=== PATIENT | male | born 1985 | race Caucasian/White ===

== ENCOUNTER → 2017-01-26 | Outpatient (CLI) | payer BC ==
[2017-01-28 08:37] LABS: FOLLICLE STIMULATING HORMONE 1.9 mIU/mL (1.5-12.4); LUTEINIZING HORMONE 4.8 mIU/mL (1.7-8.6)
[2017-01-28 13:59] LABS: PROLACTIN 6.6 ng/mL (4.0-15.2)
== END ==
LOC: OD 09:31
PROVIDERS: ATTEND Urology
DX: N45.1 Epididymitis (principal); N52.8 Other male erectile dysfunction; E29.1 Testicular hypofunction
CPT/HCPCS: 36415; 83001; 83002; 84146

== ENCOUNTER 2017-02-04 17:34 | Emergency (ER) | payer BC ==
[2017-02-04 17:44] VITALS: BP 100/69
--- NOTE | 2017-02-04 18:21 | ER Document Report ---
ED Dizziness/Weakness - General Chief Complaint: Passed Out Prior to Arrival Stated Complaint: PASSED OUT Time Seen by Provider: 02/04/17 18:17 Notes: Patient was watching his significant other have a procedure performed here in the emergency department. Suddenly he felt clammy sweaty and nauseated. He states he got up to walk to the bathroom to vomit and he passed out. Patient states he has done this before when watching his child be born. Patient states he feels back to normal now. He states prior to the episode of watching the medical procedure today he was feeling normally. Symptoms were moderate. They were intermittent. They are made worse by watching the medical procedure and better with rest. There is no known radiation of symptoms. TRAVEL OUTSIDE OF THE [place] IN LAST 30 DAYS: No - Related Data Allergies/Adverse Reactions: No Known Allergies Allergy (Verified 02/04/17 17:44) Past Medical History - General Information source: Patient - Social History Smoking Status: Unknown if Ever Smoked Frequency of alcohol use: Occasional Drug Abuse: None Family History: CAD, DM, Hypertension Renal/ Medical History: Denies: Hx Peritoneal Dialysis Past Surgical History: Reports: Hx Appendectomy - Immunizations Hx Diphtheria, Pertussis, Tetanus Vaccination: No Review of Systems - Review of Systems Constitutional: denies: Chills, Fever Cardiovascular: denies: Chest pain, Palpitations, Orthopnea Respiratory: denies: Cough, Short of breath Gastrointestinal: Nausea. denies: Diarrhea Physical Exam - Vital signs Vitals: Temp Pulse Resp BP Pulse Ox 98.3 F 84 16 100/69 100 02/04/17 17:40 02/04/17 17:40 02/04/17 17:40 02/04/17 17:40 02/04/17 17:40 Interpretation: Normal - General General appearance: Appears well, Alert In distress: None - HEENT Head: Normocephalic, Atraumatic Eyes: Normal Pupils: PERRL - Respiratory Respiratory status: No respiratory distress Chest status: Nontender Breath sounds: Normal Chest palpation: Normal - Cardiovascular Rhythm: Regular Heart sounds: Normal auscultation Murmur: No - Abdominal Inspection: Normal Distension: No distension Bowel sounds: Normal Tenderness: Nontender Organomegaly: No organomegaly - Back Back: Normal, Nontender - Extremities General upper extremity: Normal inspection, Nontender, Normal color, Normal ROM , Normal temperature General lower extremity: Normal inspection, Nontender, Normal color, Normal ROM , Normal temperature, Normal weight bearing. No: Byron's sign - Neurological Neuro grossly intact: Yes Cognition: Normal Orientation: AAOx4 Marcell Coma Scale Eye Opening: Spontaneous Campbell Coma Scale Verbal: Oriented Marcell Coma Scale Motor: Obeys Commands Campbell Coma Scale Total: 15 Speech: Normal Motor strength normal: LUE, RUE, LLE, RLE Sensory: Normal - Psychological Associated symptoms: Normal affect, Normal mood - Skin Skin Temperature: Warm Skin Moisture: Dry Skin Color: Normal Course - Vital Signs Vital signs: Temp Pulse Resp BP Pulse Ox 98.3 F 84 16 100/69 100 02/04/17 17:40 02/04/17 17:40 02/04/17 17:40 02/04/17 17:40 02/04/17 17:40 - EKG Interpretation by Ms EKG shows normal: Sinus rhythm Rate: Normal Rhythm: NSR [place]/QRS: No: Right axis deviation, Left axis deviation Discharge - Discharge Clinical Impression: Syncope, vasovagal Condition: Stable Disposition: HOME, SELF-CARE Instructions: Vasovagal Symptoms ([facility]) Additional Instructions: Please call your primary care provider as soon as possible to arrange follow-up Forms: Return to Work Referrals: CECILIA BALLESTEROS MD [COMMUNITY BASED STAFF] - Follow up as needed
--- NOTE | 2017-02-05 08:00 | EKG REPORT ---
SEVERITY:- NORMAL ECG - SINUS RHYTHM : Confirmed by: Pepito Bellamy MD 05-Feb-2017 08:00:11
== END 2017-02-04 18:39 | disposition home or self-care (01) ==
LOC: ER 17:34
DX: R55 Syncope and collapse (principal); R11.0 Nausea
CPT/HCPCS: 93005; 93010; 99284

== ENCOUNTER → 2017-02-05 | Outpatient (CLI) | payer BC | LOC: OD 07:58 | PROVIDERS: ATTEND Urology | DX: N45.1 Epididymitis (principal); N52.8 Other male erectile dysfunction; E29.1 Testicular hypofunction | CPT/HCPCS: 36415; 84403 ==

== ENCOUNTER 2017-02-07 20:17 | Emergency (ER) | payer BC ==
--- NOTE | 2017-02-07 21:04 | ER Document Report ---
ED Medical Screen (RME) - General Chief Complaint: Penile Problem Stated Complaint: GENERAL PAIN Time Seen by Provider: 02/07/17 21:01 TRAVEL OUTSIDE OF THE [place] IN LAST 30 DAYS: No - HPI Notes: 02/07/17 21:01 Patient is a 31-year-old male with a history of erectile dysfunction who presents the ED complaining of an erection lasting for 5 hours status post injection of prostaglandin E1/Phentolamine/Papverine by his Urologist this afternoon. Pt states that he started his erection at 1600. Pt states that he is starting to have discomfort and tried cold showers with no relief. He was instructed to take pseudoephedrine 30mg PO, but could not find any at the store. No other concerns or complaints. His Urologist is Dr. Camargo. I have treated and performed a rapid initial assessment of this patient. A comprehensive ED assessment and evaluation of the patient, analysis of test results and completion of medical decision making process will be conducted by additional ED providers. - Related Data Allergies/Adverse Reactions: No Known Allergies Allergy (Verified 02/07/17 20:18) Past Medical History Renal/ Medical History: Denies: Hx Peritoneal Dialysis Past Surgical History: Reports: Hx Appendectomy - Immunizations Hx Diphtheria, Pertussis, Tetanus Vaccination: No Physical Exam - Vital signs Vitals: Temp Pulse Resp BP Pulse Ox 99.0 F 86 20 130/88 H 99 02/07/17 20:25 02/07/17 20:25 02/07/17 20:25 02/07/17 20:25 02/07/17 20:25 - Respiratory Respiratory status: No respiratory distress Breath sounds: Normal - Cardiovascular Rhythm: Regular Heart sounds: Normal auscultation - Genitourinary Notes: + erection Course - Vital Signs Vital signs: Temp Pulse Resp BP Pulse Ox 99.0 F 86 20 130/88 H 99 02/07/17 20:25 02/07/17 20:25 02/07/17 20:25 02/07/17 20:25 02/07/17 20:25
[2017-02-07] MEDS ORDERED: PHENYLEPHRINE HCL INJ/PF 10 MG/1 ML SDV ONE (21:44)
[2017-02-07] MEDS ORDERED: LIDOCAINE 1% INJ-PF (10 MG/ML) 30 ML SDV ONE (21:45)
--- NOTE | 2017-02-07 21:59 | ER Document Report ---
ED General - General Chief Complaint: Penile Problem Stated Complaint: GENERAL PAIN Time Seen by Provider: 02/07/17 21:01 Notes: 31-year-old with history of erectile dysfunction who received a prostaglandin injection into his penis today and a urologist office. He states that since that time he has had an unpleasant erection but that has not gone away. It has been present now for 6 hours. He describes a constant, dull, throbbing pain to his penis. He has not been able to try anything to improve the symptoms. Nothing worsens the symptoms. Today was the first time he had ever received this medication. He denies any additional symptoms or concerns. TRAVEL OUTSIDE OF THE [place] IN LAST 30 DAYS: No - Related Data Allergies/Adverse Reactions: No Known Allergies Allergy (Verified 02/07/17 20:18) Past Medical History - General Information source: Patient - Social History Smoking Status: Never Smoker Chew tobacco use (# tins/day): No Frequency of alcohol use: None Drug Abuse: None Lives with: Spouse/Significant other Family History: CAD, DM, Hypertension Patient has suicidal ideation: No Patient has homicidal ideation: No Renal/ Medical History: Denies: Hx Peritoneal Dialysis Past Surgical History: Reports: Hx Appendectomy - Immunizations Hx Diphtheria, Pertussis, Tetanus Vaccination: No Review of Systems - Review of Systems Notes: Constitutional: Negative for fever. HENT: Negative for sore throat. Eyes: Negative for visual changes. Cardiovascular: Negative for chest pain. Respiratory: Negative for shortness of breath. Gastrointestinal: Negative for abdominal pain, vomiting or diarrhea. Genitourinary: Positive for priapism Musculoskeletal: Negative for back pain. Skin: Negative for rash. Neurological: Negative for headaches, weakness or numbness. 10 point ROS negative except as marked above and in HPI. Physical Exam - Vital signs Vitals: Temp Pulse Resp BP Pulse Ox 99.0 F 86 20 130/88 H 99 02/07/17 20:25 02/07/17 20:25 02/07/17 20:25 02/07/17 20:25 02/07/17 20:25 Interpretation: Normal Notes: PHYSICAL EXAMINATION: GENERAL: Appears mildly uncomfortable but no acute distress HEAD: Atraumatic, normocephalic. EYES: Pupils equal round and reactive to light, extraocular movements intact, sclera anicteric, conjunctiva are normal. ENT: nares patent, oropharynx clear without exudates. Moist mucous membranes. NECK: Normal range of motion, supple without lymphadenopathy LUNGS: Breath sounds clear to auscultation bilaterally and equal. No wheezes rales or rhonchi. HEART: Regular rate and rhythm without murmurs ABDOMEN: Soft, nontender, normoactive bowel sounds. No guarding, no rebound. No masses appreciated. : Priapism. Testicles without any focal tenderness. Positive cremasteric reflex bilaterally. There is a small area of bruising to the left 3 o'clock position on the penis from the prior injection EXTREMITIES: Normal range of motion, no pitting or edema. No cyanosis. NEUROLOGICAL: No focal neurological deficits. Moves all extremities spontaneously and on command. PSYCH: Anxious SKIN: Warm, Dry, normal turgor, no rashes or lesions noted. Course - Re-evaluation Re-evalutation: 02/07/17 21:57 Patient presents with priapism after receiving a prostaglandin injection and his urologist office today. On examination patient does have a very firm, uncomfortable direction. I injected 0.5 cc of local lidocaine to the lateral position of the penis at approximately the 3 o'clock position. After numbing, 5 cc of blood was able to be pulled. 1 mg of phenylephrine was instilled and I will recheck the patient in 5 minutes. [id number]-patient has had complete resolution of his priapism. No longer in pain. At this time will discharge with return precautions and follow-up recommendations. Verbal discharge instructions given a the bedside and opportunity for questions given. Medication warnings reviewed. Patient is in agreement with this plan and has verbalized understanding of return precautions and the need for urology primary care follow-up in the next 24-72 hours. - Vital Signs Vital signs: Temp Pulse Resp BP Pulse Ox 97.9 F 88 14 114/68 99 02/07/17 22:52 02/07/17 22:52 02/07/17 22:52 02/07/17 22:52 02/07/17 22:52 Procedures - Additional Procedures Priapism reduction: Notes: 02/08/17 03:43 The entirety of the base of the penis was prepped with chlorhexidine. Sterile gloves were applied. 1 cc of 1% lidocaine without epinephrine was instilled in the 3 o'clock position at the base of the penis. An 18-gauge needle was then inserted and blood was withdrawn until no further blood could be returned. A total of 7 cc of blood was removed. 1 cc of phenylephrine containing a total of 1 mg of phenylephrine was injected at the same site. Discharge - Discharge Clinical Impression: Priapism, drug-induced Condition: Good Disposition: HOME, SELF-CARE Additional Instructions: You may have some mild bruising and swelling over the site that we have injected the medications into. Please avoid manipulation of your penis by either sexual intercourse or masturbation for the next several days until he no longer have any discomfort to the area. The mild numbing doing that you have at this time from the lidocaine injection should resolve within the next several hours. Return if you have recurrence of an erection that will not go away, increasing pain, or any other symptoms that are worrisome to you.
[2017-02-07 22:54] VITALS: BP 114/68
== END 2017-02-07 22:55 | disposition home or self-care (01) ==
LOC: ER 20:17
PROC: 0V9 Male Reproductive System, Drainage (ICD-10-PCS; principal; 2017-02-07)
DX: N48.89 Other specified disorders of penis (principal); N48.30 Priapism, unspecified
CPT/HCPCS: 99283; 54220; J3490; J2370

== ENCOUNTER 2017-03-04 16:36 | Emergency (ER) | payer BC ==
[2017-03-04 16:47] VITALS: BP 128/78
[2017-03-04] MEDS ORDERED: NORMAL SALINE 1000 ML 1,000 ML IV ONE (17:05)
[2017-03-04] MEDS ORDERED: ONDANSETRON HCL INJ/PF 4 MG/2 ML SDV IV ONE (17:05)
--- NOTE | 2017-03-04 17:07 | ER Document Report ---
ED General - General Chief Complaint: Nausea/Vomiting/Diarrhea Stated Complaint: ABDOMINAL PAIN,DIARRHEA,VOMITING Time Seen by Provider: 03/04/17 16:55 Mode of Arrival: Ambulatory Information source: Patient Notes: 31-year-old male presents with complaints of nausea vomiting diarrhea 3 day duration. Patient notes 120 episodes of vomiting more than 10 episodes of diarrhea. Denies any blood in either. Family member had similar episodes prior to him getting sick. Patient denies any significant abdominal pain TRAVEL OUTSIDE OF THE [place] IN LAST 30 DAYS: No - HPI Onset: Other - 3 day duration Onset/Duration: Persistent Quality of pain: Cramping Severity: Mild Pain Level: 1 Associated symptoms: Diarrhea, Nausea, Vomiting Exacerbated by: Denies Relieved by: Denies Similar symptoms previously: No Recently seen / treated by doctor: No - Related Data Allergies/Adverse Reactions: No Known Allergies Allergy (Verified 03/04/17 16:38) Past Medical History - Social History Smoking Status: Never Smoker Cigarette use (# per day): No Chew tobacco use (# tins/day): No Smoking Education Provided: No Frequency of alcohol use: None Drug Abuse: None Family History: CAD, DM, Hypertension Patient has suicidal ideation: No Patient has homicidal ideation: No Renal/ Medical History: Denies: Hx Peritoneal Dialysis Past Surgical History: Reports: Hx Appendectomy - Immunizations Hx Diphtheria, Pertussis, Tetanus Vaccination: No Review of Systems - Review of Systems Notes: REVIEW OF SYSTEMS: CONSTITUTIONAL : Denies fever, chills, or sweats. Denies recent illness. EENT: Denies eye, ear, throat, or mouth pain or symptoms. Denies nasal or sinus congestion or discharge. Denies throat, tongue, or mouth swelling or difficulty swallowing. CARDIOVASCULAR: Denies chest pain. Denies palpitations or racing or irregular heart beat. Denies ankle edema. RESPIRATORY: Denies cough, cold, or chest congestion. Denies shortness of breath, difficulty breathing, or wheezing. GASTROINTESTINAL: Admits to nausea vomiting diarrhea GENITOURINARY: Denies difficulty urinating, painful urination, burning, frequency, blood in urine, or discharge. MUSCULOSKELETAL: Denies back or neck pain or stiffness. Denies joint pain or swelling. SKIN: Denies rash, lesions or sores. HEMATOLOGIC : Denies easy bruising or bleeding. LYMPHATIC: Denies swollen, enlarged glands. NEUROLOGICAL: Denies confusion or altered mental status. Denies passing out or loss of consciousness. Denies dizziness or lightheadedness. Denies headache. Denies weakness or paralysis or loss of use of either side. Denies problems with gait or speech. Denies sensory loss, numbness, or tingling. Denies seizures. PSYCHIATRIC: Denies anxiety or stress. Denies depression, suicidal ideation, or homicidal ideation. ALL OTHER SYSTEMS REVIEWED AND NEGATIVE. Dictation was performed using [employer] voice recognition software PHYSICAL EXAMINATION: GENERAL: Well-appearing, well-nourished and in no acute distress. HEAD: Atraumatic, normocephalic. EYES: Pupils equal round and reactive to light, extraocular movements intact, sclera anicteric, conjunctiva are normal. ENT: Nares patent, oropharynx clear without exudates. Moist mucous membranes. NECK: Normal range of motion, supple without lymphadenopathy LUNGS: Breath sounds clear to auscultation bilaterally and equal. No wheezes rales or rhonchi. HEART: Regular rate and rhythm without murmurs ABDOMEN: Soft, nontender, nondistended abdomen. No guarding, no rebound. No masses appreciated. Musculoskeletal: Normal range of motion, no pitting or edema. No cyanosis. NEUROLOGICAL: Cranial nerves grossly intact. Normal speech, normal gait. Normal sensory, motor exams PSYCH: Normal mood, normal affect. SKIN: Warm, Dry, normal turgor, no rashes or lesions noted. Physical Exam - Vital signs Vitals: Temp Pulse Resp BP Pulse Ox 98.0 F 89 18 128/78 H 98 03/04/17 16:47 03/04/17 16:47 03/04/17 16:47 03/04/17 16:47 03/04/17 16:47 Course - Re-evaluation Re-evalutation: 03/04/17 17:06 Overall patient looks well, expect some mild dehydration, IV fluids nausea control will be provided 03/04/17 18:02 Patient notes significant improvement, he is eating at this time. I will discharge home with close follow-up After performing a Medical Screening Examination, I estimate there is LOW risk for ACUTE APPENDICITIS, BOWEL OBSTRUCTION, ACUTE CHOLECYSTITIS, PERFORATED DIVERTICULITIS, INCARCERATED HERNIA, PANCREATITIS, TESTICULAR TORSION or PERFORATED ULCER, thus I consider the discharge disposition reasonable. Also, there is no evidence or peritonitis, sepsis, or toxicity. I have reevaluated this patient multiple times and no significant life threatening changes are noted. The patient and I have discussed the diagnosis and risks, and we agree with discharging home with close follow-up with the understanding that symptoms and presentations can change. We also discussed returning to the Emergency Department immediately if new or worsening symptoms occur. We have discussed the symptoms which are most concerning (e.g., bloody stool, fever, changing or worsening pain, intractable vomiting - standard verbal up date) that necessitate immediate return. - Vital Signs Vital signs: Temp Pulse Resp BP Pulse Ox 98.0 F 89 18 128/78 H 98 03/04/17 16:47 03/04/17 16:47 03/04/17 16:47 03/04/17 16:47 03/04/17 16:47 - Laboratory Result Diagrams: 03/04/17 17:18 03/04/17 17:18 Laboratory results interpreted by me: 03/04/17 03/04/17 17:18 17:18 MCH 33.8 H Plt Count 134 L BUN 24 H Discharge - Discharge Clinical Impression: Nausea vomiting and diarrhea Condition: Stable Disposition: HOME, SELF-CARE Instructions: Antinausea Medication ([facility]), Vomiting ([facility]) Additional Instructions: Follow up with your physician tomorrow for further care or return to the ED IMMEDIATELY if symptoms worsen or new concerns occur. If you cannot afford to follow up with your primary care physician a list of low cost clinics have been provided at the end of your discharge papers as well.
[2017-03-04 17:40] LABS: ABSOLUTE EOSINOPHILS # (AUTO) 0.2 10^3/uL (0.0-0.6); ABSOLUTE LYMPHOCYTES (AUTO) 1.7 10^3/uL (0.5-4.7); ABSOLUTE NEUT (AUTO) 5.5 10^3/uL (1.7-8.2); BASOPHILS % (AUTO) 0.2 % (0-2); EOSINOPHILS % (AUTO) 2.2 % (0-6); HEMATOCRIT 45.9 % (37.9-51.0); HEMOGLOBIN 16.2 g/dL (13.5-17.0); HGB HCT DIFFERENCE 2.7; LYMPHOCYTES % (AUTO) 20.5 % (13-45); MEAN CORPUSCULAR HEMOGLOBIN 33.8 pg (27.0-33.4); MEAN CORPUSCULAR HGB CONC 35.3 g/dL (32.0-36.0); MEAN CORPUSCULAR VOLUME 96 fl (80-97); MONOCYTES % (AUTO) 12.3 % (3-13); RED CELL DISTRIBUTION WIDTH 13.1 % (11.5-14.0); SEGMENTED NEUTROPHILS % (AUTO) 64.8 % (42-78); WHITE BLOOD COUNT 8.5 10^3/uL (4.0-10.5)
[2017-03-04 17:44] LABS: ALANINE AMINOTRANSFERASE 31 U/L (21-72); ALBUMIN 4.4 g/dL (3.5-5.0); ALKALINE PHOSPHATASE 84 U/L (38-126); ANION GAP 13 (5-19); ASPARTATE AMINO TRANSFERASE 23 U/L (17-59); BILIRUBIN,DIRECT 0.2 mg/dL (0.0-0.4); BILIRUBIN,TOTAL 0.8 mg/dL (0.2-1.3); BLOOD UREA NITROGEN 24 mg/dL (7-20); CALCIUM 9.8 mg/dL (8.4-10.2); CARBON DIOXIDE 27 mmol/L (22-30); CHLORIDE 104 mmol/L (98-107); CREATININE RESULT 1.01 mg/dL (0.52-1.25); GLUCOSE 92 mg/dL (75-110); LIPASE 138.4 U/L (23-300); POTASSIUM 4.1 mmol/L (3.6-5.0)
[2017-03-04] MEDS ORDERED: ONDANSETRON ODT 4 MG TAB (6 TAB/DSPK) PO SCH (18:15)
== END 2017-03-04 18:21 | disposition home or self-care (01) ==
LOC: ER 16:36
DX: R11.2 Nausea with vomiting, unspecified (principal); R19.7 Diarrhea, unspecified; R10.9 Unspecified abdominal pain
CPT/HCPCS: 99283; 96361; 96374; 36415; 83690; 85025; 80053; J2405; J7030

== ENCOUNTER 2017-06-04 08:10 | Emergency (ER) | payer SELFPAY ==
--- NOTE | 2017-06-04 09:50 | RADIOLOGY REPORT (SQ) ---
EXAM DESCRIPTION: HAND RIGHT 3 VIEWS COMPLETED DATE/TIME: 06/04/2017 9:26 am REASON FOR STUDY: pain in thumb COMPARISON: None. EXAM PARAMETERS: NUMBER OF VIEWS: Three views. TECHNIQUE: AP, lateral and oblique radiographic images acquired of the right hand. LIMITATIONS: None. FINDINGS: MINERALIZATION: Normal. BONES: No acute fracture or dislocation. No worrisome bone lesions. JOINTS: No effusions. SOFT TISSUES: No soft tissue swelling. No foreign body. OTHER: No other significant finding. IMPRESSION: NEGATIVE STUDY OF THE RIGHT HAND. NO RADIOGRAPHIC EVIDENCE OF ACUTE INJURY. TECHNICAL DOCUMENTATION: JOB ID: [id number] [employer]- All Rights Reserved Reading location - IP/workstation name: [email or web address]
--- NOTE | 2017-06-04 10:05 | ER Document Report ---
ED Hand/Wrist Injury - General Chief Complaint: Thumb Injury Stated Complaint: THUMB PAIN Time Seen by Provider: 06/04/17 09:18 Mode of Arrival: Ambulatory Information source: Patient TRAVEL OUTSIDE OF THE [place] IN LAST 30 DAYS: No - HPI Patient complains to provider of: thumb injury Injury to: Thumb Where: Home Notes: Patient is here with complaints of right thumb pain. He states he was standing on a step stool putting a shower head on when the stool slipped and he fell trying to catch himself jamming his right thumb into the wall. 7 5 days ago. States that the pain seems to be getting worse and he has slightly decreased range of motion of the thumb. He denies hitting his head. He denies numbness, tingling, weakness. He denies chest pain or shortness of breath. He denies nausea, vomiting, diarrhea. Pain is worse with movement better with rest. Been taking ibuprofen for pain. States the ibuprofen does not seem to be working anymore. He denies any fevers. No redness. No rash. He denies any other complaints at this time. No other injuries. - Related Data Allergies/Adverse Reactions: No Known Allergies Allergy (Verified 06/04/17 08:14) Past Medical History - Social History Smoking Status: Unknown if Ever Smoked Chew tobacco use (# tins/day): No Frequency of alcohol use: None Drug Abuse: None Family History: CAD, DM, Hypertension Patient has suicidal ideation: No Patient has homicidal ideation: No Renal/ Medical History: Denies: Hx Peritoneal Dialysis Past Surgical History: Reports: Hx Appendectomy - Immunizations Hx Diphtheria, Pertussis, Tetanus Vaccination: No Review of Systems - Review of Systems -: Yes All other systems reviewed and negative Physical Exam - Vital signs Vitals: Temp Pulse Resp BP Pulse Ox 98.0 F 81 16 120/82 99 06/04/17 08:14 06/04/17 08:14 06/04/17 08:14 06/04/17 08:14 06/04/17 08:14 - Notes Notes: GENERAL: alert, cooperative, nontoxic, no distress. HEAD: normocephalic, atraumatic EYES: conjunctiva pink without discharge, no external redness or swelling. EARS: no external swelling, no external redness NOSE: atraumatic, no external swelling MOUTH/THROAT: mucous membranes moist and pink NECK: soft, supple, full range of motion, no meningismus. CHEST: no distress, lungs clear and equal throughout. No wheezing, rales, rhonchi. CARDIAC: regular rate and rhythm, no murmur, normal capillary refill, normal pulses. BACK: full range of motion, no CVA tenderness. EXTREMITIES: full range of motion of all extremities. No redness, no swelling. Tenderness to palpation of the proximal phalanx of the right thumb. No obvious swelling. No deformity. Full range of motion noted. He can touch all fingers and perform the okay sign without difficulty. There is no redness. 5 out of 5 strength with flexion and extension of the thumb. Wrist exam is normal. Normal cap refill and sensation distally. NEURO: alert and oriented 3, no focal deficits, full range of motion of all extremities. PYSCH: appropriate mood, affect. Patient is cooperative. SKIN: pink, warm, dry, no rash. Course - Re-evaluation Re-evalutation: 06/04/17 10:08 Patient is nontoxic appearing with stable vitals. He was here for right thumb pain after slipping and jamming his thumb into a wall. He denies any other injuries. On exam he has full range of motion with normal cap refill and sensation. No deformity. There is no redness or signs of infection. X-ray shows no acute fracture. Patient likely sprained his thumb. He was placed in an Ken wrap. Follow-up if not better in 1 week, sooner for worsening pain, fever, redness, numbness, tingling, weakness, any further concerns. The patient is noted to have elevated blood pressure during today's emergency department visit. The patient was informed of this finding. The patient was instructed that this may be related to pre-hypertension and requires further evaluation with a primary care provider. The patient has no hypertensive symptoms at this time. The patient's emergency department workup and current diagnosis were explained to the patient and or family. Follow-up instructions were provided. Medications if prescribed were discussed. Instructions for when to return to the emergency department including specific worrisome symptoms were discussed with the patient and/or family. - Vital Signs Vital signs: Temp Pulse Resp BP Pulse Ox 98.0 F 81 16 120/82 99 06/04/17 08:14 06/04/17 08:14 06/04/17 08:14 06/04/17 08:14 06/04/17 08:14 - Diagnostic Test Radiology reviewed: Image reviewed, Reports reviewed - X-ray right hand normal Procedures - Immobilization Right hand Pre-Proc Neuro Vasc Exam: Normal Immobilizer type: Ken wrap Performed by: PCT Post-Proc Neuro Vasc Exam: Normal Alignment checked and good: Yes Discharge - Discharge Clinical Impression: Sprain of right thumb Qualifiers: Encounter type: initial encounter Sprain of finger site: metacarpophalangeal joint Qualified Code(s): S63.641A - Sprain of metacarpophalangeal joint of right thumb, initial encounter Condition: Stable Disposition: HOME, SELF-CARE Instructions: Sprained Thumb ([facility]) Additional Instructions: Take medications as prescribed. You may also take Tylenol as needed for pain. Wear Ken wrap as needed for comfort. Rest, ice, elevate your injury. Follow- up if not better in 1 week, sooner for worsening pain, fever, redness, numbness , tingling, weakness, any further concerns. Your blood pressure was elevated during today's visit. Have this rechecked with your doctor. Prescriptions: Diclofenac Sodium [Voltaren 50 Mg Tablet.Dr] 50 mg PO BID #20 tablet.dr Forms: Elevated Blood Pressure, Smoking Cessation Education, Return to Work Referrals: [facility] [Provider Group] - Follow up as needed PATRICIA VÁZQUEZ MD [ACTIVE STAFF] - Follow up as needed
[2017-06-04 10:19] VITALS: BP 117/75
== END 2017-06-04 10:19 | disposition home or self-care (01) ==
LOC: ER 08:10
DX: S63.641A Sprain of metacarpophalangeal joint of right thumb, initial encounter (principal); M79.644 Pain in right finger(s); W17.89XA Other fall from one level to another, initial encounter; Y93.89 Activity, other specified; R03.0 Elevated blood-pressure reading, without diagnosis of hypertension
CPT/HCPCS: 99283

== ENCOUNTER 2017-07-14 16:15 | Emergency (ER) | payer SELFPAY ==
--- NOTE | 2017-07-14 16:46 | ER Document Report ---
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 IN LAST 30 DAYS: No - HEENT HEENT: Normocephalic - NECK Neck: Supple - MUSCULOSKELETAL/EXTREMETIES Musculoskeletal/Extremeties: MAEW, Tender - dorsal right thumb, pt limits flexion due to pain, color normal, no swelling, sensation intact - NEURO Level of Consciousness: Awake, Alert Motor/Sensory: No Motor Deficit, No Sensory Deficit - DERM Integumentary: No Rash Course - Re-evaluation Re-evalutation: 07/14/17 17:54 still has not gotten the xray, in radiology department. 07/14/17 xray neg per rad - Vital Signs Vital signs: Temp Pulse Resp BP Pulse Ox 98.4 F 84 16 132/80 H 98 07/14/17 16:23 07/14/17 16:23 07/14/17 16:23 07/14/17 16:23 07/14/17 16:23 Discharge - Discharge Clinical Impression: Tendonitis Thumb injury Qualifiers: Encounter type: initial encounter Laterality: right Qualified Code(s): S69.91XA - Unspecified injury of right wrist, hand and finger(s), initial encounter Condition: Good Disposition: HOME, SELF-CARE Instructions: Acetaminophen, Ibuprofen (General) ([facility]), Tendonitis ([facility]) Additional Instructions: the the hand surgeon dr nielson for follow up motrin for inflammation range of motion of the thumb to er any concerns Prescriptions: Ibuprofen [Motrin 600 mg Tablet] 600 mg PO Q8HP PRN #30 tablet PRN Reason: Forms: Return to Work Referrals: ADINA NIELSON, [ACTIVE STAFF] - Follow up as needed
--- NOTE | 2017-07-14 18:21 | RADIOLOGY REPORT (SQ) ---
EXAM DESCRIPTION: FINGER RIGHT COMPLETED DATE/TIME: 07/14/2017 6:02 pm REASON FOR STUDY: right thumb pain COMPARISON: None. NUMBER OF VIEWS: Three views right hand and thumb. LIMITATIONS: None. FINDINGS: No fracture, subluxation or dislocation. Soft tissues intact. OTHER: No other significant finding. IMPRESSION: Radiographically normal appearance of the right hand and thumb. TECHNICAL DOCUMENTATION: JOB ID: [id number] Reading location - IP/workstation name: [email or web address]
[2017-07-14 18:34] VITALS: BP 131/81
== END 2017-07-14 18:35 | disposition home or self-care (01) ==
LOC: ER 16:15
DX: S69.91XA Unspecified injury of right wrist, hand and finger(s), initial encounter (principal); M77.9 Enthesopathy, unspecified; W01.0XXA Fall on same level from slipping, tripping and stumbling without subsequent striking against object, initial encounter
CPT/HCPCS: 99283

== ENCOUNTER 2018-03-23 16:00 | Emergency (ER) | payer BC, OTHER ==
--- NOTE | 2018-03-23 16:20 | ER Document Report ---
ED Medical Screen (RME) - General Chief Complaint: Thumb Injury Stated Complaint: THUMB PAIN Time Seen by Provider: 03/23/18 16:19 Mode of Arrival: Ambulatory Information source: Patient TRAVEL OUTSIDE OF THE [place] IN LAST 30 DAYS: No - HPI Patient complains to provider of: L thumb pain Onset: Yesterday - pt fell at work yesterday on L thumb. Still painful - Related Data Allergies/Adverse Reactions: No Known Allergies Allergy (Verified 07/14/17 16:18) Past Medical History Renal/ Medical History: Denies: Hx Peritoneal Dialysis Past Surgical History: Reports: Hx Appendectomy - Immunizations Hx Diphtheria, Pertussis, Tetanus Vaccination: No Physical Exam - Vital signs Vitals: Temp Pulse Resp BP Pulse Ox 98.3 F 79 16 119/79 99 03/23/18 16:07 03/23/18 16:07 03/23/18 16:07 03/23/18 16:07 03/23/18 16:07 Course - Vital Signs Vital signs: Temp Pulse Resp BP Pulse Ox 98.3 F 79 16 119/79 99 03/23/18 16:07 03/23/18 16:07 03/23/18 16:07 03/23/18 16:07 03/23/18 16:07
--- NOTE | 2018-03-23 16:55 | RADIOLOGY REPORT (SQ) ---
EXAM DESCRIPTION: FINGER LEFT COMPLETED DATE/TIME: 03/23/2018 4:44 pm REASON FOR STUDY: Jammed thumb at work hurts COMPARISON: None. NUMBER OF VIEWS: Three views. TECHNIQUE: AP, lateral, and oblique images acquired of the left thumb. LIMITATIONS: None. FINDINGS: MINERALIZATION: Normal. BONES: No acute fracture or dislocation. No worrisome bone lesions. SOFT TISSUES: No soft tissue swelling. No foreign body. OTHER: No other significant finding. IMPRESSION: NO RADIOGRAPHIC EVIDENCE OF ACUTE INJURY. TECHNICAL DOCUMENTATION: JOB ID: [id number] [employer]- All Rights Reserved Reading location - IP/workstation name: [email or web address]
[2018-03-23] MEDS ORDERED: TRAMADOL HCL 50 MG TABLET PO ONE (18:57)
--- NOTE | 2018-03-23 19:07 | ER Document Report ---
HPI - HPI Time Seen by Provider: 03/23/18 16:19 Pain Level: 3 Notes: Patient is a 32-year-old male who presents with chief complaint of left thumb pain. Patient reports that last week while he was at work he fell onto his outstretched hand and landed directly on his left thumb. He states he has tried taking ibuprofen and Tylenol with no relief. Patient reports the pain is only getting worse. - CONSTITUTIONAL Constitutional: DENIES: Fever, Chills - MUSCULOSKELETAL Musculoskeletal: REPORTS: Extremity pain - left thumb Past Medical History - General Information source: Patient - Social History Smoking Status: Never Smoker Frequency of alcohol use: None Drug Abuse: None Family History: CAD, DM, Hypertension Patient has suicidal ideation: No Patient has homicidal ideation: No - Medical History Medical History: Negative Renal/ Medical History: Denies: Hx Peritoneal Dialysis Past Surgical History: Reports: Hx Appendectomy - Immunizations Hx Diphtheria, Pertussis, Tetanus Vaccination: No Vertical Provider Document - CONSTITUTIONAL Notes: PHYSICAL EXAMINATION: GENERAL: Well-appearing, well-nourished and in no acute distress. HEAD: Atraumatic, normocephalic. EYES: Pupils equal round extraocular movements intact, conjunctiva are normal. ENT: Nares patent NECK: Normal range of motion LUNGS: No respiratory distress Musculoskeletal: Limited range of motion to left thumb, normal cap refill, normal sensation. NEUROLOGICAL: Normal speech, normal gait. PSYCH: Normal mood, normal affect. SKIN: Warm, Dry, normal turgor, no rashes or lesions noted. - INFECTION CONTROL TRAVEL OUTSIDE OF THE [place] IN LAST 30 DAYS: No Course - Re-evaluation Re-evalutation: X-rays negative for any acute findings to include fracture dislocation. Possible tendon or ligament injury based upon limited range of motion. Patient will be instructed to continue taking ibuprofen, ice, elevate, will provide short course of tramadol as patient states that he cannot take hydrocodone due to itching. Patient will be given information for orthopedics. Patient asking for Percocet instead of tramadol, will continue to provide patient with prescription for tramadol as I told in the Percocet is not indicated for his pain. - Vital Signs Vital signs: Temp Pulse Resp BP Pulse Ox 98.3 F 79 16 119/79 99 03/23/18 16:07 03/23/18 16:07 03/23/18 16:07 03/23/18 16:07 03/23/18 16:07 Procedures - Immobilization Left thumb Pre-Proc Neuro Vasc Exam: Normal Immobilizer type: Thumb spica Performed by: PCT Post-Proc Neuro Vasc Exam: Normal Alignment checked and good: Yes Discharge - Discharge Clinical Impression: Thumb injury Condition: Stable Disposition: HOME, SELF-CARE Instructions: Tendon Strain ([facility]) Additional Instructions: Tendon Strain You have strained a tendon. "Strain" means stretching and partial tearing of the fibers of the tendon. This often occurs with strenuous exertion, or during an injury that suddenly stretches the tendon. The seriousness of a strain varies. Some strains heal within days, others cause problems for months. X-rays don't show a tendon strain. X-rays are taken only if symptoms suggest that a fracture could be present. The usual treatment of a tendon strain is rest and ice packs. Sometimes a sling, splint, or crutches may be necessary to rest the tendon. The area can be used again once pain subsides. Severe strains require a special exercise and stretching program to prevent permanent stiffness and disability. Your doctor will advise you if this will be necessary. Call the doctor immediately if pain or swelling becomes severe, or if numbness or discoloration develop. Ice and elevate as discussed. Take ibuprofen 600 mg every 6 hours for pain and inflammation. Use the tramadol only for severe pain. Follow-up with orthopedic as we discussed. Prescriptions: RX: Tramadol HCl [Ultram 50 mg Tablet] 50 mg PO Q6HP PRN #12 tablet PRN Reason: Forms: Return to Work Referrals: ADINA NIELSON DO [ACTIVE STAFF] - Follow up as needed GM BAXTER MD [COMMUNITY BASED STAFF] - Follow up as needed
[2018-03-23 19:21] VITALS: BP 132/88
== END 2018-03-23 19:21 | disposition home or self-care (01) ==
LOC: ER 16:00
DX: S69.90XA Unspecified injury of unspecified wrist, hand and finger(s), initial encounter (principal); M79.645 Pain in left finger(s); W01.0XXA Fall on same level from slipping, tripping and stumbling without subsequent striking against object, initial encounter; Y99.0 Civilian activity done for income or pay
CPT/HCPCS: 99283

== ENCOUNTER 2018-03-24 14:56 | Emergency (ER) | payer OTHER ==
[2018-03-24] MEDS ORDERED: IBUPROFEN 600 MG TABLET PO ONE (16:06)
--- NOTE | 2018-03-24 16:07 | ER Document Report ---
ED Hand/Wrist Injury - General Chief Complaint: Thumb Injury Stated Complaint: LEFT THUMB PAIN Time Seen by Provider: 03/24/18 15:47 Notes: Patient is a 32-year-old male who presents with chief complaint of left thumb pain. Patient reports that last week while he was at work he fell onto his outstretched hand and landed directly on his left thumb. He states he has tried taking ibuprofen and Tylenol with no relief. Patient returns to the emergency department because he reports the pain is only getting worse. Patient states he has been taking Motrin intermittently. Patient complains that his thumb is numb and tingly. TRAVEL OUTSIDE OF THE [place] IN LAST 30 DAYS: No - Related Data Allergies/Adverse Reactions: acetaminophen [From [place]] Allergy (Verified 03/24/18 16:08) hydrocodone [From [place]] Allergy (Verified 03/24/18 16:08) Past Medical History - General Information source: Patient - Social History Smoking Status: Unknown if Ever Smoked Family History: CAD, DM, Hypertension Renal/ Medical History: Denies: Hx Peritoneal Dialysis Past Surgical History: Reports: Hx Appendectomy - Immunizations Hx Diphtheria, Pertussis, Tetanus Vaccination: No Review of Systems - Review of Systems Constitutional: No symptoms reported EENT: No symptoms reported Cardiovascular: No symptoms reported Respiratory: No symptoms reported Gastrointestinal: No symptoms reported Genitourinary: No symptoms reported Male Genitourinary: No symptoms reported Musculoskeletal: See HPI Skin: No symptoms reported Hematologic/Lymphatic: No symptoms reported Neurological/Psychological: No symptoms reported Physical Exam - Vital signs Vitals: Temp Pulse Resp BP Pulse Ox 98.1 F 74 16 127/83 H 74 L 03/24/18 15:15 03/24/18 15:15 03/24/18 15:15 03/24/18 15:15 03/24/18 15:15 - Notes Notes: Reviewed vital signs and nursing note as charted by RN. CONSTITUTIONAL: Well-appearing, well-nourished, acting appropriately for age HEAD: Normocephalic, atraumatic, no swelling EYES: PERRL, Conjunctivae clear, no drainage, EOMI, no scleral icterus ENT: External ears without lesions, External auditory canal is patent, airway patent, mucous membranes pink and moist CARD: Regular rate and rhythm, no murmurs, no rubs, no gallops, capillary refill 3 seconds left thumb, symmetric pulses RESP: The lungs are clear to auscultation bilaterally, no wheezing, no rales, no rhonchi. Respiratory rate and effort are normal, normal chest excursion. No respiratory distress, no retractions, no stridor, no nasal flaring, no accessory muscle use. EXT: Normal ROM in all joints, tender to palpation base of left thumb, no effusions, no edema SKIN: Normal color for age and race, warm, dry, good turgor, no acute lesions no emanuel NEURO: No facial asymmetry, moves all extremities equally, motor and sensory function intact Course - Re-evaluation Re-evalutation: 03/24/18 19:24 Patient presents with complaints of worsening pain in his left thumb after being seen here yesterday with a negative x-ray for fracture. Patient states his thumb was numb and tingling. Cap refill initially greater than 3 seconds. I loosened the Ken wrap and within 5 minutes the patient felt relief, had normal sensation, cap refill brisk less than 2 seconds. I explained to the patient that opioids were an appropriate treatment for this type of injury and explained to him that he should take Motrin 600 mg every 6 hours for the next couple of days, ice the affected area, and follow-up with orthopedics. He agreed - Vital Signs Vital signs: Temp Pulse Resp BP Pulse Ox 97.3 F 93 16 123/89 H 99 03/24/18 16:27 03/24/18 16:27 03/24/18 16:27 03/24/18 16:27 03/24/18 16:27 Discharge - Discharge Clinical Impression: Injury of left thumb Qualifiers: Encounter type: subsequent encounter Qualified Code(s): S69.92XD - Unspecified injury of left wrist, hand and finger(s), subsequent encounter Condition: Good Disposition: HOME, SELF-CARE Additional Instructions: Tendon Strain You have strained a tendon. "Strain" means stretching and partial tearing of the fibers of the tendon. This often occurs with strenuous exertion, or during an injury that suddenly stretches the tendon. The seriousness of a strain varies. Some strains heal within days, others cause problems for months. X-rays don't show a tendon strain. X-rays are taken only if symptoms suggest that a fracture could be present. The usual treatment of a tendon strain is rest and ice packs. Sometimes a sling, splint, or crutches may be necessary to rest the tendon. The area can be used again once pain subsides. Severe strains require a special exercise and stretching program to prevent permanent stiffness and disability. Your doctor will advise you if this will be necessary. Call the doctor immediately if pain or swelling becomes severe, or if numbness or discoloration develop. Ice and elevate as discussed. Take ibuprofen 600 mg every 6 hours for pain and inflammation. Use the tramadol only for severe pain. Follow-up with orthopedic as we discussed. Forms: Return to Work
[2018-03-24 16:28] VITALS: BP 123/89
== END 2018-03-24 16:30 | disposition home or self-care (01) ==
LOC: ER 14:56
DX: S69.92XA Unspecified injury of left wrist, hand and finger(s), initial encounter (principal); W19.XXXA Unspecified fall, initial encounter; Y99.0 Civilian activity done for income or pay
CPT/HCPCS: 99282

== ENCOUNTER 2018-04-02 18:42 | Emergency (ER) | payer SELFPAY ==
--- NOTE | 2018-04-02 20:14 | ER Document Report ---
HPI - HPI Time Seen by Provider: 04/02/18 19:46 Pain Level: 3 Context: Patient is a 32-year-old male who presents emergency department with a chief complaint of a toothache. He said he was eating a Jaw [employer] on Saturday and chipped his tooth. He also has a dental carry to that area. He states that his pain as an aching pain. Is not taking any medications to help with his pain. - EENT EENT: DENIES: Sore Throat, Nasal Drainage-Clear - NEURO Neurology: DENIES: Headache - CARDIOVASCULAR Cardiovascular: DENIES: Chest pain - RESPIRATORY Respiratory: DENIES: Trouble Breathing, Coughing Past Medical History - General Information source: Patient - Social History Smoking Status: Never Smoker Frequency of alcohol use: None Family History: Reviewed & Not Pertinent, CAD, DM, Hypertension Renal/ Medical History: Denies: Hx Peritoneal Dialysis Past Surgical History: Reports: Hx Appendectomy - Immunizations Hx Diphtheria, Pertussis, Tetanus Vaccination: No Vertical Provider Document - INFECTION CONTROL TRAVEL OUTSIDE OF THE [place] IN LAST 30 DAYS: No - HEENT HEENT: Atraumatic, Normocephalic Notes: Dental carry to tooth #6 - NECK Neck: Normal Inspection - RESPIRATORY Respiratory: Breath Sounds Normal - CARDIOVASCULAR Cardiovascular: Regular Rate, Regular Rhythm - NEURO Level of Consciousness: Awake, Alert, Appropriate - DERM Integumentary: Warm, Dry Course - Re-evaluation Re-evalutation: 04/02/18 20:14 Patient's physical exam and history is most consistent with a infected tooth. The tooth that is affected is #6. Patient is able to swallow, no facial swelling noted, airways pain, vital signs are normal. I do not suspect Kash's angina, apical abscess, or airway obstruction. The patient will be started on oral antibiotics. I have given the patient education on their antibiotics. Patient was given instructions to follow-up with a dentist this week. Return precautions were given. Verbal discharge instructions were given. Patient verbalized understanding. Patient is stable for discharge. - Vital Signs Vital signs: Temp Pulse Resp BP Pulse Ox 98.4 F 90 20 135/84 H 99 04/02/18 19:15 04/02/18 19:15 04/02/18 19:15 04/02/18 19:15 04/02/18 19:15 Discharge - Discharge Clinical Impression: Toothache Condition: Stable Disposition: HOME, SELF-CARE Instructions: Penicillin V K ([facility]), Toothache ([facility]) Additional Instructions: You have been seen in the emergency department for a toothache. You may take ibuprofen 600 mg and every 6 hours as needed for the pain. You have also been given topical lidocaine. Placed that to the affected tooth as needed to help with pain. You have also been prescribed antibiotics. Please take the antibiotics as prescribed, even if you start to feel better. If you develop a fever greater than 100.4 F, or have any symptoms that are worrisome to you, please return to the emergency department. Please follow-up with a dentist this week in regards to your visit. Prescriptions: Penicillin V Potassium [Penicillin Vk 250 mg Tablet] 500 mg PO QID #28 tablet
[2018-04-02] MEDS ORDERED: PENICILLIN V POTASSIUM 500 MG TABLET PO ONE (20:17)
[2018-04-02] MEDS ORDERED: LIDOCAINE 2% VISCOUS SOLN 20 ML UDCUP PO ONE (20:17)
[2018-04-02 20:43] VITALS: BP 124/88
== END 2018-04-02 20:42 | disposition home or self-care (01) ==
LOC: ER 18:42
DX: K08.9 Disorder of teeth and supporting structures, unspecified (principal)
CPT/HCPCS: 99282; J3490

== ENCOUNTER 2018-08-12 12:46 | Emergency (ER) | payer SELFPAY ==
--- NOTE | 2018-08-12 13:46 | ER Document Report ---
ED Medical Screen (RME) - General Chief Complaint: Groin Injury Stated Complaint: LEFT SIDE GROIN/THIGH PAIN Time Seen by Provider: 08/12/18 13:42 Mode of Arrival: Ambulatory Information source: Patient Notes: Patient presents emergency department with left-sided groin pain. Patient reports he was a heavy bed last night and started hurting. He has been alternating with Tylenol Motrin still having pain. Reports this happened to him few years ago. Denies pain with void. Denies testicular pain. I have greeted and performed a rapid initial assessment of this patient. A comprehensive ED assessment and evaluation of the patient, analysis of test results and completion of the medical decision making process will be conducted by additional ED providers. Dictation of this chart was performed using voice recognition software; therefore, there may be some unintended grammatical errors. TRAVEL OUTSIDE OF THE [place] IN LAST 30 DAYS: No - Related Data Allergies/Adverse Reactions: acetaminophen [From [place]] Allergy (Verified 04/02/18 18:44) hydrocodone [From [place]] Allergy (Verified 04/02/18 18:44) Past Medical History - Social History Chew tobacco use (# tins/day): No Frequency of alcohol use: None Drug Abuse: None Renal/ Medical History: Denies: Hx Peritoneal Dialysis Past Surgical History: Reports: Hx Appendectomy - Immunizations Hx Diphtheria, Pertussis, Tetanus Vaccination: No Physical Exam - Vital signs Vitals: Temp Pulse Resp BP Pulse Ox 98.7 F 92 16 118/87 H 96 08/12/18 13:05 08/12/18 13:05 08/12/18 13:05 08/12/18 13:05 08/12/18 13:05 Course - Vital Signs Vital signs: Temp Pulse Resp BP Pulse Ox 98.7 F 92 16 118/87 H 96 08/12/18 13:05 08/12/18 13:05 08/12/18 13:05 08/12/18 13:05 08/12/18 13:05
[2018-08-12 14:54] LABS: APPEARANCE,URINE CLEAR; BILIRUBIN,URINE NEGATIVE (NEGATIVE); COLOR,URINE YELLOW; GLUCOSE, URINE NEGATIVE (NEGATIVE); KETONES,URINE NEGATIVE (NEGATIVE); LEUKOCYTE ESTERASE,URINE NEGATIVE (NEGATIVE); NITRITE,URINE NEGATIVE (NEGATIVE); PROTEIN,URINE NEGATIVE (NEGATIVE); UROBILINOGEN,URINE NEGATIVE mg/dL (<2.0)
--- NOTE | 2018-08-12 15:13 | ER Document Report ---
ED GI/ - General Chief Complaint: Groin Injury Stated Complaint: LEFT SIDE GROIN/THIGH PAIN Time Seen by Provider: 08/12/18 13:42 Primary Care Provider: VIKTORIA BREAUX [Primary Care Provider] - Follow up as needed Mode of Arrival: Ambulatory Information source: Patient Notes: 32-year-old man presented to ED for complaint of left-sided groin pain. He states he was trying to move a heavy bed last night because his has a lot of medical problems and he did not want her to help move. He states he felt like he heard a pop in his left groin while moving the bed. He states he has injured this area in the past and was treated by Dr. Camargo at that time. He states he just feels like he is pulled something again. Patient is alert oriented respirations regular and unlabored speaking in full sentences. He denies any pain swelling or bruising to his scrotum. He states just feels like there is a burning in his left upper thigh and groin. There is no bruising there is no swelling there is no obvious injuries to this area. Patient is able to walk with no difficulty. TRAVEL OUTSIDE OF THE [place] IN LAST 30 DAYS: No - HPI Patient complains to provider of: Groin pain - Left no testicular pain no scrotal pain no swelling or bulging to the groin or scrotum no bruising. No: Testicular pain Onset: Yesterday Timing/Duration: Gradual Quality of pain: Burning, Sharp Severity at maximum: Moderate Severity in ED: Moderate Pain Level: 4 Location: Other - Left groin. No: LUQ, LLQ, RUQ, Low back, Suprapubic, Left testicle, Right testicle, Rectal Associated symptoms: denies: Dysuria, Erection problem, Fever, Loss of appetite, Nausea, Painful intercourse, Penile discharge, Radiates to back, Radiates to shoulder, Sweaty, Urinary hesitancy, Urinary frequency, Urinary retention, Urinary urgency Exacerbated by: Movement, Walking Relieved by: Denies Similar symptoms previously: Yes Recently seen / treated by doctor: No - Related Data Allergies/Adverse Reactions: acetaminophen [From [place]] Allergy (Verified 04/02/18 18:44) hydrocodone [From [place]] Allergy (Verified 04/02/18 18:44) Past Medical History - General Information source: Patient - Social History Smoking Status: Never Smoker Chew tobacco use (# tins/day): No Frequency of alcohol use: None Drug Abuse: None Lives with: Family Family History: Reviewed & Not Pertinent, CAD, DM, Hypertension Patient has suicidal ideation: No Patient has homicidal ideation: No - Past Medical History Cardiac Medical History: Reports: None Pulmonary Medical History: Reports: None EENT Medical History: Reports: None Neurological Medical History: Reports: None Endocrine Medical History: Reports: None Renal/ Medical History: Reports: None Malignancy Medical History: Reports None GI Medical History: Reports: None Musculoskeletal Medical History: Reports Hx Musculoskeletal Trauma Skin Medical History: Reports None Psychiatric Medical History: Reports: None Traumatic Medical History: Reports: None Infectious Medical History: Reports: None Past Surgical History: Reports: Hx Appendectomy - Immunizations Hx Diphtheria, Pertussis, Tetanus Vaccination: No Review of Systems - Review of Systems Constitutional: No symptoms reported EENT: No symptoms reported Cardiovascular: No symptoms reported Respiratory: No symptoms reported Gastrointestinal: No symptoms reported Genitourinary: No symptoms reported Male Genitourinary: No symptoms reported Musculoskeletal: Muscle pain - Left groin muscle pain Skin: No symptoms reported Hematologic/Lymphatic: No symptoms reported Neurological/Psychological: No symptoms reported Physical Exam - Vital signs Vitals: Temp Pulse Resp BP Pulse Ox 98.7 F 92 16 118/87 H 96 08/12/18 13:05 08/12/18 13:05 08/12/18 13:05 08/12/18 13:05 08/12/18 13:05 Interpretation: Normal - General General appearance: Appears well, Alert - HEENT Head: Normocephalic, Atraumatic Eyes: Normal Pupils: PERRL - Respiratory Respiratory status: No respiratory distress Chest status: Nontender Breath sounds: Normal Chest palpation: Normal - Cardiovascular Rhythm: Regular Heart sounds: Normal auscultation Murmur: No - Abdominal Inspection: Normal Distension: No distension Bowel sounds: Normal Tenderness: Nontender Organomegaly: No organomegaly - Back Back: Normal, Nontender - Extremities General upper extremity: Normal inspection, Nontender, Normal color, Normal ROM, Normal temperature General lower extremity: Normal inspection, Normal color, Normal ROM, Normal temperature, Normal weight bearing. No: Byron's sign Hip: Tender, Other - Left groin groin tenderness. No: Abrasion, Deformity, Dislocation, Ecchymosis, Instability, Laceration, Pain with ROM, Unable to bear weight Thigh: Normal, Tender - Left groin Knee: Normal, Nontender - Neurological Neuro grossly intact: Yes Cognition: Normal Orientation: AAOx4 Marcell Coma Scale Eye Opening: Spontaneous [place] Coma Scale Verbal: Oriented [place] Coma Scale Motor: Obeys Commands [place] Coma Scale Total: 15 Speech: Normal Motor strength normal: LUE, RUE, LLE, RLE Sensory: Normal - Psychological Associated symptoms: Normal affect, Normal mood - Skin Skin Temperature: Warm Skin Moisture: Dry Skin Color: Normal Course - Re-evaluation Re-evalutation: 08/12/18 21:14 Discussed labs and ultrasound with patient and written report of labs and ultrasound given to patient patient was discharged home. Patient verbalized understanding and agreement with treatment plan. - Vital Signs Vital signs: Temp Pulse Resp BP Pulse Ox 98.7 F 86 18 127/81 H 98 08/12/18 13:05 08/12/18 15:50 08/12/18 15:50 08/12/18 15:50 08/12/18 15:50 - Laboratory Laboratory results interpreted by me: 08/12/18 14:35 Urine Blood SMALL H - Diagnostic Test Radiology reviewed: Image reviewed, Reports reviewed Discharge - Discharge Clinical Impression: Strain of left inguinal muscle Qualifiers: Encounter type: initial encounter Qualified Code(s): S39.013A - Strain of muscle, fascia and tendon of pelvis, initial encounter Condition: Stable Disposition: HOME, SELF-CARE Instructions: Family Physicians / Practices Additional Instructions: Muscle Strain You have strained a muscle -- torn the fibers within the muscle. This often occurs with strenuous exertion, or during an injury that suddenly stretches the muscle. The seriousness of a strain varies. Some strains heal within days, others cause problems for months. X-rays cannot show a muscle strain. X-rays are taken only if symptoms suggest that a fracture could be present. The usual treatment of a muscle strain is rest and ice packs. Sometimes, a sling, splint, or crutches may be necessary to rest the muscle. The muscle can be used again once pain subsides. Severe strains require a special exercise and stretching program to prevent permanent stiffness and disability. Your doctor will advise you if this will be necessary. Call the doctor immediately if pain or swelling becomes severe, or if numbness or discoloration develop. Muscle Relaxers Muscle relaxing medications are usually prescribed for acute muscle spasm or injury to the neck and back. They are often combined with antiinflammatory pain medication for increased relief. You may stop the muscle relaxer when the pain and stiffness have improved. Start the medication again if spasms recur. Muscle relaxers may cause drowsiness, especially with the first dose. Do not operate machinery or drive while under the effects of the medication. Most muscle relaxers last up to 24 hours. Do not combine the medication with alcohol. Ibuprofen Ibuprofen is an excellent, safe drug for pain control. In addition, it has potent antiinflammatory effects which are beneficial, especially in the treatment of injuries, arthritis, or tendonitis. It's best to take ibuprofen with food. Persons with ulcer disease or allergy to aspirin should notify their physician of this before taking ibuprofen. Take the medication exactly as prescribed. Don't take additional doses unless instructed to do so by your doctor. If you develop wheezing, shortness of breath, hives, faintness, stomach pain, vomiting, or dark black stools, return for re-evaluation at once. Acetaminophen Acetaminophen may be taken for pain relief or fever control. It's much safer than aspirin, offering a wider range of "safe" dosages. It is safe during . Some brand names are Tylenol, Panadol, Datril, Anacin 3, Tempra, and Liquiprin. Acetaminophen can be repeated every four hours. The following are maximum recommended dosages: WEIGHT Dose Drops Elixir Chewable(80mg) (LBS.) drprs=droppers tsp=teaspoon 6 40 mg .4 ml (1/2) 6-11 80 mg .8 ml (full) 1/2 tsp 1 tab 12-16 120 mg 1 1/2 drprs 3/4 tsp 1 1/2 tabs 17-23 160 mg 2 drprs 1 tsp 2 tabs 24-30 240 mg 3 drprs 1 1/2 tsp 3 tabs 30-35 320 mg 2 tsp 4 tabs 36-41 360 mg 2 1/4 tsp 4 1/2 tabs 42-47 400 mg 2 1/2 tsp 5 tabs 48-53 480 mg 3 tsp 6 tabs 54-59 520 mg 3 1/4 tsp 6 1/2 tabs 60-64 560 mg 3 1/2 tsp 7 tabs 65-70 600 mg 3 3/4 tsp 7 1/2 tabs 71-76 640 mg 4 tsp 8 tabs 77-82 720 mg 4 1/2 tsp 9 tabs 83-88 800 mg 5 tsp 10 tabs >89 pounds or adults 650 mg to 900 mg Acetaminophen can be repeated every four hours. Maximum daily dose not to exceed 4000 mg. These maximum recommended dosages are slightly higher than the dosages written on the product container, but these dosages are very safe and well below the toxic dosage for acetaminophen. Ice Packs Apply ice packs frequently against the painful area. Many different schedules are recommended, such as "20 minutes on, 20 minutes off" or "one hour ice, two hours rest." If you need to work, you may need to go longer between ice treatments. You should plan to have the area ice packed AT LEAST one fourth of the time. The ice should be applied over the wrap, tape, or splint, or over a layer of cloth -- not directly against the skin. Some ice bags have a built-in cloth and can be put directly on the skin. Warm Packs After approximately two days, apply gentle heat (such as a heating pad or hot water bottle) for about 20 to 30 minutes about every two hours -- at least four times daily. Warmth and elevation will help you make a more rapid recovery, and will ease the pain considerably. Do not use HOT heat, and never apply heat for longer than 30 minutes. The continuous heat can invisibly damage skin and muscles -- even when no burn is seen on the surface. Damaged muscles can make you MORE sore. FOLLOW-UP CARE: If you have been referred to a physician for follow-up care, call the physicians office for an appointment as you were instructed or within the next two days. If you experience worsening or a significant change in your symptoms, notify the physician immediately or return to the Emergency Department at any time for re-evaluation. Prescriptions: Ibuprofen [Motrin 800 mg Tablet] 800 mg PO Q8HP PRN #20 tab PRN Reason: For Pain Scale 3-5 Methocarbamol [Robaxin 500 mg Tablet] 500 mg PO BIDP PRN #20 tablet PRN Reason: For Pain Scale 3-4 Forms: Return to Work Referrals: LOCALMD,NO [Primary Care Provider] - Follow up as needed
--- NOTE | 2018-08-12 15:24 | RADIOLOGY REPORT (SQ) ---
EXAM DESCRIPTION: U/S SCROTUM W/DOPPLER COMPLETED DATE/TIME: 08/12/2018 3:15 pm REASON FOR STUDY: LEFT SIDE Groin pain, inguinal COMPARISON: 01/15/2017. TECHNIQUE: Static and realtime hollins scale imaging of the scrotum and testes. Selected color Doppler and spectral images recorded to document blood flow. LIMITATIONS: None. FINDINGS: RIGHT: TESTICLE: Normal size. Normal echotexture. Normal blood flow. No mass. EPIDIDYMIS: Normal. HYDROCELE OR VARICOCELE: No. HERNIA OR EXTRA-TESTICULAR MASS: No. OTHER: No other significant finding. LEFT: TESTICLE: Normal size. Normal echotexture. Normal blood flow. No mass. EPIDIDYMIS: Normal. HYDROCELE OR VARICOCELE: No. HERNIA OR EXTRA-TESTICULAR MASS: No. OTHER: No other significant finding. IMPRESSION: NORMAL SCROTAL ULTRASOUND. NO EVIDENCE OF TESTICULAR MASS OR TORSION. NO ABNORMAL SONOG RAPHIC FINDINGS IN THE LEFT INGUINAL REGION. TECHNICAL DOCUMENTATION: JOB ID: [id number] [employer]- All Rights Reserved Reading location - IP/workstation name: [email or web address]
[2018-08-12] MEDS ORDERED: IBUPROFEN 600 MG TABLET PO ONE (15:42)
[2018-08-12] MEDS ORDERED: METHOCARBAMOL 500 MG TABLET PO ONE (15:42)
[2018-08-12 15:51] VITALS: BP 127/81
== END 2018-08-12 16:06 | disposition home or self-care (01) ==
LOC: ER 12:46
DX: S39.011A Strain of muscle, fascia and tendon of abdomen, initial encounter (principal); X50.0XXA Overexertion from strenuous movement or load, initial encounter; Y92.003 Bedroom of unspecified non-institutional (private) residence as the place of occurrence of the external cause; Z88.6 Allergy status to analgesic agent; Z90.49 Acquired absence of other specified parts of digestive tract
CPT/HCPCS: 76870; 81001; 93976; 99284

== ENCOUNTER 2019-03-06 10:53 | Emergency (ER) | payer SELFPAY ==
[2019-03-06 11:14] VITALS: BP 126/79
--- NOTE | 2019-03-06 12:03 | ER Document Report ---
HPI - HPI Time Seen by Provider: 03/06/19 11:57 Pain Level: 3 Notes: Patient is a 33-year-old male who presents to the ED complaining of nasal congestion/discharge, dry nonproductive cough, fever, body ache, posttussive emesis 1 day. Patient states that he is still eating and drinking without difficulties, but does have a decreased p.o. intake. He is still urinating normally having normal bowel movements. Patient has been using some [id number] meds for symptoms. He denies any significant past medical history including cardiopulmonary history and immunocompromised conditions. Patient requesting work note. Denies any current headache, neck pain, sore throat, chest pain, palpitations, syncope, shortness of breath, wheeze, dyspnea, abdominal pain, diarrhea, urinary retention, dysuria, hematuria, or rash. - ROS Systems Reviewed and Negative: Yes All other systems reviewed and negative - REPRODUCTIVE Reproductive: DENIES: : Past Medical History - Social History Smoking Status: Unknown if Ever Smoked Frequency of alcohol use: None Drug Abuse: None Family History: Reviewed & Not Pertinent, CAD, DM, Hypertension Patient has suicidal ideation: No Patient has homicidal ideation: No Renal/ Medical History: Denies: Hx Peritoneal Dialysis Musculoskeletal Medical History: Reports Hx Musculoskeletal Trauma Past Surgical History: Reports: Hx Appendectomy - Immunizations Hx Diphtheria, Pertussis, Tetanus Vaccination: No Vertical Provider Document - CONSTITUTIONAL Agree With Documented VS: Yes Notes: PHYSICAL EXAMINATION: GENERAL: Well-appearing, well-nourished and in no acute distress. A&Ox4. Answers questions appropriately. Moves comfortably w/o notable distress HEAD: Atraumatic, normocephalic. EYES: Pupils equal round and reactive to light, extraocular movements intact, sclera anicteric, conjunctiva are normal. ENT: EAC clear b/l. TM's intact b/l without erythema, fluid, or perforation. Nares patent and with clear discharge. oropharynx no erythema without exudates. No tonsilar hypertrophy without erythema or exudate. No palatine shift. Uvula midline. No tongue protrusion. No drooling, hoarseness, or airway compromise. Moist mucous membranes. No sinus tenderness. NECK: Normal range of motion, supple without lymphadenopathy. No rigidity/meningismus. LUNGS: Breath sounds clear to auscultation bilaterally and equal. No wheezes rales or rhonchi. No retractions HEART: Regular rate and rhythm without murmurs, rubs, gallops. ABDOMEN: Soft, nontender, nondistended abdomen. No guarding, no rebound. Normal bowel sounds present. No CVA tenderness bilaterally. NEUROLOGICAL: Normal speech, normal gait. PSYCH: Normal mood, normal affect. SKIN: Warm, Dry, normal turgor, no rashes or lesions noted. - INFECTION CONTROL TRAVEL OUTSIDE OF THE [place] IN LAST 30 DAYS: No Course - Re-evaluation Re-evalutation: 03/06/19 12:01 Patient is an afebrile, well-hydrated, 33-year-old male who presents to the ED with acute URI, suspect influenza. Vitals are acceptable. PE is otherwise unremarkable. No labs or imaging warranted at this time based on H&P. Patient has no significant cardiopulmonary or immunocompromised medical conditions. Patient's lungs are clear to auscultation bilaterally without tachycardia, hypoxia, or tachypnea. Patient is tolerating p.o. without any difficulties. Thoroughly reviewed the risks, benefits, potential side effects, estimated cost without insurance with patient. After thorough review, patient requested Tamiflu at this time. Low suspicion for any meningitis, sepsis, peritonsillar/pharyngeal abscess, respiratory compromise, severe dehydration, or other emergent systemic condition at this time. Patient is aware this condition can change from initial presentation and he needs to monitor symptoms closely. Conservative measures otherwise for symptoms. Recheck with your PCM in 3-5 days. Return to the ED with any worsening/concerning symptoms otherwise as reviewed in discharge. Patient is in agreement. - Vital Signs Vital signs: Temp Pulse Resp BP Pulse Ox 98.9 F 87 16 126/79 H 100 03/06/19 11:14 03/06/19 11:14 03/06/19 11:14 03/06/19 11:14 03/06/19 11:14 Discharge - Discharge Clinical Impression: Acute URI Condition: Stable Disposition: HOME, SELF-CARE Instructions: Upper Respiratory Illness ([facility]) Additional Instructions: Maintain adequate fluid intake tylenol/ibuprofen as needed alternating every 3 hours for fever/body ache over the counter cold medication as needed for symptoms Humidified air may help Wash your hands regularly Wear a mask when coughing F/u: with your PCM in 3-5 days for a recheck Return to the ED with any fever, altered mental status/behavior, chest pain, palpitations, syncope, headache, neck pain/stiffness, shortness of breath, chest pains, wheezing, drooling, trouble swallowing/breathing, abdominal pain, n/v/d, rash, or worsening/concerning symptoms otherwise. Prescriptions: Oseltamivir Phosphate [Tamiflu 75 mg Capsule] 75 mg PO BID #10 capsule Ondansetron [Zofran Odt 4 mg Tablet] 1 - 2 tab PO Q4H PRN #15 tab.rapdis PRN Reason: For Nausea/Vomiting Forms: Elevated Blood Pressure, Return to Work Referrals: LOCALMD,NO [Primary Care Provider] - Follow up as needed
== END 2019-03-06 12:05 | disposition home or self-care (01) ==
LOC: ER 10:53
DX: J06.9 Acute upper respiratory infection, unspecified (principal); R09.81 Nasal congestion; R09.89 Other specified symptoms and signs involving the circulatory and respiratory systems; R05 Cough; R50.9 Fever, unspecified; R11.10 Vomiting, unspecified; R52 Pain, unspecified
CPT/HCPCS: 99283

== ENCOUNTER 2019-08-12 11:48 | Emergency (ER) | payer BC ==
[2019-08-12 11:52] VITALS: BP 151/86
[2019-08-12] MEDS ORDERED: KETOROLAC TROMETHAMINE 60 MG/2 ML SDV IM ONE (12:43)
[2019-08-12] MEDS ORDERED: CYCLOBENZAPRINE HCL 10 MG TABLET PO ONE (12:44)
--- NOTE | 2019-08-12 13:46 | ER Document Report ---
HPI - HPI Patient complains to provider of: Back Pain/ Skin Lesion Time Seen by Provider: 08/12/19 12:43 Pain Level: 2 Context: 33-year-old male no previous medical problems presents to the emergency room complaining of a spot in the middle of his chest that he noticed a week ago. States he thought it was a pimple and tried to pop it he is noticed over the past few days that it has gotten more discolored and erythematous. Has not had any discharge or draining from it. No history of abscesses in the past. Denies any history of MRSA. Is also complaining of some low back pain that radiates to his upper back for the past month. States is causing him to have a headache. Denies nausea, vomiting, denies worst headache of his life, denies any sudden thunderclap. He is tried ice, ibuprofen, Tylenol, hot packs and Aspercreme without relief. He denies any trauma or injury. No history of herniated disks or chronic back pain. Pain does not radiate into his legs. He denies any numbness or tingling. No generalized weakness. Denies any saddle anesthesia, no loss of control over his bowels or bladder, no red flags. Associated Symptoms: None Exacerbated by: Movement Relieved by: Denies Similar symptoms previously: No Recently seen / treated by doctor: No - ROS ROS below otherwise negative: Yes - CONSTITUTIONAL Constitutional: DENIES: Fever, Chills - NEURO Neurology: REPORTS: Headache. DENIES: Weakness, Vision blurred, Dizzinesss / Vertigo - RESPIRATORY Respiratory: DENIES: Trouble Breathing - URINARY Urinary: DENIES: Dysuria, Urgency, Frequency - REPRODUCTIVE Reproductive: DENIES: : - MUSCULOSKELETAL Musculoskeletal: REPORTS: Back Pain - DERM Skin Color: Erythema, Blackened Skin Problems: None Past Medical History - General Information source: Patient - Social History Smoking Status: Never Smoker Chew tobacco use (# tins/day): No Frequency of alcohol use: None Drug Abuse: None Family History: Reviewed & Not Pertinent, CAD, DM, Hypertension Patient has homicidal ideation: No - Past Medical History Cardiac Medical History: Reports: Hx Hypertension Renal/ Medical History: Denies: Hx Peritoneal Dialysis Musculoskeletal Medical History: Reports Hx Musculoskeletal Trauma Past Surgical History: Reports: Hx Appendectomy - Immunizations Hx Diphtheria, Pertussis, Tetanus Vaccination: No Vertical Provider Document - CONSTITUTIONAL Agree With Documented VS: Yes Exam Limitations: No Limitations General Appearance: Mild Distress - INFECTION CONTROL TRAVEL OUTSIDE OF THE [place] IN LAST 30 DAYS: No - HEENT HEENT: Atraumatic, Normal ENT Exam, Normocephalic, PERRLA. negative: Conjuctival Injection - NECK Neck: Normal Inspection, Supple. negative: Lymphadenopathy-Left, Lymphadenopathy-Right - RESPIRATORY Respiratory: Breath Sounds Normal, No Respiratory Distress, Chest Non-Tender. negative: Rales, Rhonchi, Wheezing - CARDIOVASCULAR Cardiovascular: Regular Rate, Regular Rhythm, No Murmur - BACK Back: Abnormal Inspection - Tenderness on palpation from T5-T8, tenderness on palpation from L5-S1. Full range of motion with flexion, extension of the back. There is no obvious deformity noted. No CVA tenderness noted bilaterally.. negative: CVA Tenderness-Right, CVA Tenderness-Left Notes: Negative straight leg raising bilaterally. - MUSCULOSKELETAL/EXTREMETIES Musculoskeletal/Extremeties: FROM, Non-Tender, No Edema - NEURO Level of Consciousness: Awake, Alert, Appropriate Motor/Sensory: No Motor Deficit, No Sensory Deficit Notes: Patellar reflexes equal and adequate bilaterally. He is ambulatory with a steady gait. He is neurovascular intact. - DERM Integumentary: Warm, Dry Notes: Mid center of the chest there is a 1 cm lesion that is erythematous. Warm but nontender to palpation. Nonfluctuant. No active discharge or draining noted. Course - Re-evaluation Re-evalutation: 08/12/19 13:41 Patient is resting comfortably with decreased pain. Afebrile, nontoxic- appearing, ambulatory with a steady gait. Negative straight leg raising bilaterally. Neurovascularly intact. Counseled take all medications as prescribed. Outpatient follow-up with a primary care physician for recheck in 2 to 3 days. Patient was given strict return to the emergency room guidelines. Return for any new or worsening symptoms. All questions were answered. Patient verbalized understanding and agrees with plan of care. - Vital Signs Vital signs: Temp Pulse Resp BP Pulse Ox 98.6 F 80 16 151/86 H 99 08/12/19 12:38 08/12/19 11:51 08/12/19 11:51 08/12/19 11:51 08/12/19 11:51 Discharge - Discharge Clinical Impression: Back pain with left-sided sciatica, Cellulitis of chest wall Condition: Stable Disposition: HOME, SELF-CARE Instructions: Cellulitis ([facility]), Low Back Pain ([facility]), Sciatica ([facility]) Additional Instructions: You have been seen in the Emergency Department (ED) today for back pain. Your workup and exam have not shown any acute abnormalities and you are likely suffering from muscle strain or possible problems with your discs, but there is no treatment that will fix your symptoms at this time. Please take the naproxen that has been prescribed as directed. You should also purchase a local lidocaine cream such as "aspercreme with lidocaine" and use per bottle instructions to the affected area. Apply heat to the area as often as you are able. Continue to keep active and avoid prolonged periods of bed rest. Please follow up with your doctor as soon as possible regarding today's ED visit and your back pain. Return to the ED for worsening back pain, fever, weakness or numbness of either leg, or if you develop either (1) an inability to urinate or have bowel movements, or (2) loss of your ability to control your bathroom functions (if you start having "accidents"), or if you develop other new symptoms that concern you.concern you. The rash is likely due to infection of your skin. You need to take the antibiotics as prescribed. Do not stop even if the rash goes away until you have completed all the antibiotics. You should also return if you develop fevers with temperature greater than 101, persistent vomiting, worsening pain, or have any other symptoms that are concerning to you. Follow-up with your doctor in the next 24-48 hours. Prescriptions: Clindamycin HCl 300 mg PO TID 10 Days #40 capsule Cyclobenzaprine HCl [Flexeril 10 mg Tablet] 10 mg PO TIDP PRN #15 tablet PRN Reason: Forms: Return to Work Referrals: [facility] [Provider Group] - Follow up as needed
== END 2019-08-12 13:50 | disposition home or self-care (01) ==
LOC: ER 11:48
DX: L03.313 Cellulitis of chest wall (principal); M54.32 Sciatica, left side; R51 Headache; I10 Essential (primary) hypertension
CPT/HCPCS: 99283; 96372; J1885

== ENCOUNTER 2019-08-15 13:04 | Emergency (ER) | payer BC ==
[2019-08-15 13:09] VITALS: BP 131/80
--- NOTE | 2019-08-15 14:01 | ER Document Report ---
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 He has no numbness no tingling no loss of bowel bladder function and he does have palpable spasm to his lumbar area. Associated Symptoms: None - REPRODUCTIVE Reproductive: DENIES: : Past Medical History - General Information source: Patient - Social History Smoking Status: Never Smoker Chew tobacco use (# tins/day): No Frequency of alcohol use: None Drug Abuse: None Family History: Reviewed & Not Pertinent, CAD, DM, Hypertension Patient has homicidal ideation: No - Past Medical History Cardiac Medical History: Reports: Hx Hypertension Renal/ Medical History: Denies: Hx Peritoneal Dialysis Musculoskeletal Medical History: Reports Hx Musculoskeletal Trauma Past Surgical History: Reports: Hx Appendectomy - Immunizations Hx Diphtheria, Pertussis, Tetanus Vaccination: No Vertical Provider Document - CONSTITUTIONAL Agree With Documented VS: Yes - INFECTION CONTROL TRAVEL OUTSIDE OF THE [place] IN LAST 30 DAYS: No - HEENT HEENT: Atraumatic, Conjuctival Injection, Normocephalic, PERRLA - NECK Neck: Normal Inspection - CARDIOVASCULAR Cardiovascular: Regular Rate, Regular Rhythm - GI/ABDOMEN Gastrointestinal: Abdomen Soft, Abdomen Non-Tender - REPRODUCTIVE Male Genitalia: Normal Inspection - BACK Notes: Patient has palpable spasm lateral to midline both sides of his back from the lumbar up through the thoracic area is got no midline tenderness no step-off no crepitus no loss of bowel bladder function no saddle anesthesia ambulatory with a rhythmic and steady gait - MUSCULOSKELETAL/EXTREMETIES Musculoskeletal/Extremeties: MAEW - NEURO Level of Consciousness: Awake, Alert Course - Re-evaluation Re-evalutation: 08/15/19 14:01 Patient does have a tachycardia however he does admit to having had an energy drink this morning he has no chest pain no shortness of breath no exertional chest pain no exertional shortness of breath he has no fever he has no nausea he has no vomiting I have elicited questions from him seeking any information it might yield a lumbar abscess or any rationale for such and none is identified. - Vital Signs Vital signs: Temp Pulse Resp BP Pulse Ox 98.5 F 118 H 14 131/80 H 98 08/15/19 13:48 08/15/19 13:07 08/15/19 13:07 08/15/19 13:07 08/15/19 13:07 Discharge - Discharge Clinical Impression: Acute lumbar myofascial strain Qualifiers: Encounter type: initial encounter Qualified Code(s): S39.012A - Strain of muscle, fascia and tendon of lower back, initial encounter Disposition: HOME, SELF-CARE Instructions: Warm Packs ([facility]), Muscle Strain ([facility]), Low Back Pain ([facility]) Additional Instructions: Warm compress to affected area 4-5 times a day increase fluid intake rest return to the emergency room for any change worsening condition. Prescriptions: Diclofenac Sodium 75 mg PO QAM PRN #20 tablet. PRN Reason: Methocarbamol [Robaxin 750 mg Tablet] 750 mg PO ASDIR PRN #40 tablet PRN Reason: Referrals: DEDE TIDWELL PA-C [Primary Care Provider] - Follow up as needed
== END 2019-08-15 14:14 | disposition home or self-care (01) ==
LOC: ER 13:04
DX: S39.012A Strain of muscle, fascia and tendon of lower back, initial encounter (principal); M54.9 Dorsalgia, unspecified; R00.0 Tachycardia, unspecified; X50.0XXA Overexertion from strenuous movement or load, initial encounter; I10 Essential (primary) hypertension
CPT/HCPCS: 99283

== ENCOUNTER 2019-08-20 22:32 | Emergency (ER) | payer BC ==
[2019-08-20] MEDS ORDERED: NORMAL SALINE 1000 ML 1,000 ML IV PRN (22:41)
--- NOTE | 2019-08-20 23:23 | RADIOLOGY REPORT (SQ) ---
EXAM DESCRIPTION: XR ABDOMEN SUPINE AND ERECT WITH CHEST (ABD ACUTE SERIES) COMPLETED DATE/TME: 08/20/2019 22:41 CLINICAL HISTORY: pain COMPARISON: None. FINDINGS: Single frontal view of the chest with upright and supine views of the abdomen. Cardiomediastinal silhouette: Normal size and contour. Lungs: No consolidation, pneumothorax, or pleural effusion. Leads overlie the chest and abdomen. Bones: No acute osseous abnormality. Abdomen: No free intraperitoneal air. No dilated loops of large or small bowel. Moderate amount of stool. IMPRESSION: 1. No acute pulmonary process identified. 2. Nonobstructive bowel gas pattern
[2019-08-20 23:26] LABS: ABSOLUTE EOSINOPHILS # (AUTO) 0.1 10^3/uL (0.0-0.6); ABSOLUTE LYMPHOCYTES (AUTO) 1.7 10^3/uL (0.5-4.7); ABSOLUTE MONOCYTES (AUTO) 0.7 10^3/uL (0.1-1.4); ABSOLUTE NEUT (AUTO) 4.3 10^3/uL (1.7-8.2); BASOPHILS % (AUTO) 0.2 % (0-2); EOSINOPHILS % (AUTO) 1.8 % (0-6); HEMATOCRIT 37.8 % (37.9-51.0); HEMOGLOBIN 13.4 g/dL (13.5-17.0); LYMPHOCYTES % (AUTO) 24.7 % (13-45); MEAN CORPUSCULAR HEMOGLOBIN 34.7 pg (27.0-33.4); MEAN CORPUSCULAR HGB CONC 35.4 g/dL (32.0-36.0); MEAN CORPUSCULAR VOLUME 98 fl (80-97); MONOCYTES % (AUTO) 10.4 % (3-13); PLATELET COUNT 132 10^3/uL (150-450); RED BLOOD COUNT 3.85 10^6/uL (4.35-5.55); RED CELL DISTRIBUTION WIDTH 12.6 % (11.5-14.0); SEGMENTED NEUTROPHILS % (AUTO) 62.9 % (42-78); TOTAL CELLS COUNTED % (AUTO) 100 %; WHITE BLOOD COUNT 6.8 10^3/uL (4.0-10.5)
[2019-08-20 23:29] LABS: ALBUMIN 3.9 g/dL (3.5-5.0); ALKALINE PHOSPHATASE 92 U/L (38-126); ANION GAP 7 (5-19); ASPARTATE AMINO TRANSFERASE 15 U/L (17-59); BILIRUBIN,TOTAL 0.4 mg/dL (0.2-1.3); BLOOD UREA NITROGEN 23 mg/dL (7-20); CALCIUM 8.3 mg/dL (8.4-10.2); CARBON DIOXIDE 27 mmol/L (22-30); CHLORIDE 102 mmol/L (98-107); GLUCOSE 95 mg/dL (75-110); POTASSIUM 3.9 mmol/L (3.6-5.0); TOTAL PROTEIN 5.9 g/dL (6.3-8.2)
[2019-08-21 00:26] LABS: APPEARANCE,URINE CLEAR; BILIRUBIN,URINE NEGATIVE (NEGATIVE); COLOR,URINE YELLOW; GLUCOSE, URINE NEGATIVE (NEGATIVE); KETONES,URINE NEGATIVE (NEGATIVE); LEUKOCYTE ESTERASE,URINE NEGATIVE (NEGATIVE); NITRITE,URINE NEGATIVE (NEGATIVE); PROTEIN,URINE NEGATIVE (NEGATIVE); URINE SPECIFIC GRAVITY 1.021
[2019-08-21 00:41] LABS: URINE AMPHETAMINES SCREEN NEGATIVE; URINE BARBITURATES SCREEN NEGATIVE; URINE BENZODIAZEPINES SCREEN NEGATIVE; URINE COCAINE SCREEN NEGATIVE; URINE MARIJUANA (THC) SCREEN NEGATIVE; URINE METHADONE SCREEN NEGATIVE; URINE PHENCYCLIDINE SCREEN NEGATIVE
[2019-08-21] MEDS ORDERED: RINGERS SOLUTION,LACTATED 1,000 ML IV ONE (00:47)
--- NOTE | 2019-08-21 02:12 | ER Document Report ---
ED General - General Chief Complaint: Flank Pain Stated Complaint: ABDOMINAL PAIN Primary Care Provider: DEDE TIDWELL PA-C [Primary Care Provider] - Follow up as needed MAKAYLA BOSCH JR, DO [ACTIVE PROVISIONAL STAFF] - Follow up as needed TRAVEL OUTSIDE OF THE U.S. IN LAST 30 DAYS: No - HPI Notes: 33-year-old male reporting recent diagnosis of bilateral kidney stones presents with bilateral flank pain greater on left and mild dysuria for past few days associated with 1 day of subjective fever. Patient says he was having flank pain for the past week and was seen at [facility] and was told he had bilateral kidney stones. Patient says pain is worse when he bends over and he describes his subjective fever at the experience as sometimes when the pain is severe he feels a wave of heat roll over his body. Says that he was given Percocet but that this did not improve his pain. Patient denies any trauma, measured fever, vomiting, bowel symptoms, prior episodes, midline back pain, change in gait, weakness numbness, IVDU, immunocompromise history - Related Data Allergies/Adverse Reactions: acetaminophen [From [place]] Allergy (Verified 08/12/19 12:38) hydrocodone [From [place]] Allergy (Verified 08/12/19 12:38) tramadol Allergy (Verified 08/15/19 13:48) Past Medical History - General Information source: Patient, Outside Facility Records - Social History Smoking Status: Never Smoker Frequency of alcohol use: None Drug Abuse: None Family History: Reviewed & Not Pertinent, CAD, DM, Hypertension Patient has homicidal ideation: No - Past Medical History Cardiac Medical History: Reports: Hx Hypertension Renal/ Medical History: Denies: Hx Peritoneal Dialysis Musculoskeletal Medical History: Reports Hx Musculoskeletal Trauma Past Surgical History: Reports: Hx Appendectomy - Immunizations Hx Diphtheria, Pertussis, Tetanus Vaccination: No Review of Systems - Review of Systems Notes: REVIEW OF SYSTEMS: CONSTITUTIONAL : Denies chills or sweats. EENT: Denies recent cold/sinus symptoms, denies throat pain CARDIOVASCULAR: Denies chest pain, GILBERTO RESPIRATORY: Denies cough, denies shortness of breath. GASTROINTESTINAL: Denies abdominal pain, nausea/vomiting. GENITOURINARY: Denies difficulty urinating, hematuria MUSCULOSKELETAL: Denies neck pain, +back pain. SKIN: Denies rash or skin lesions. HEMATOLOGIC : Denies easy bruising or bleeding. LYMPHATIC: Denies swollen, enlarged glands. NEUROLOGICAL: Denies headache, denies change in gait. PSYCHIATRIC: Denies anxiety or stress or depression. Physical Exam - Vital signs Vitals: Temp 98.3 F 08/20/19 22:33 - Notes Notes: PHYSICAL EXAMINATION: GENERAL: Well-appearing, well-nourished and in no acute distress. HEAD: Atraumatic, normocephalic. EYES: Pupils equal round and appropriate constriction, sclera anicteric, conj unctiva are normal. ENT: nares patent, moist mucous membranes. NECK: Normal range of motion, supple without lymphadenopathy LUNGS: Breath sounds clear to auscultation bilaterally and equal. No wheezes rales or rhonchi. HEART: Borderline tachycardic rate and regular rhythm without murmurs ABDOMEN: Soft, nontender, no guarding, no masses, no CVAT EXTREMITIES: Normal range of motion, no pitting or edema. No cyanosis. BACK: No midline spinal tenderness, mildly increased paraspinal muscle tension on both sides left greater than right NEUROLOGICAL: Awake, alert, conversing appropriately, moves all extremities spontaneously. PSYCH: Normal mood, normal affect. SKIN: Warm, Dry, normal turgor, no rashes or lesions noted. Course - Re-evaluation Re-evalutation: 08/21/19 06:00 Patient complaining of flank pain and saying he was diagnosed with kidney stones on outside ED visit 2 days prior to presentation. I performed a bedside ultrasound showed no hydronephrosis in either kidney and patient's urine was normal so I obtained the records from patient's ED visit at [facility]. These records showed that patient had lumbar spine x-ray which showed kidney stones in the kidneys so had CT scan which also showed kidney stones within the kidneys but no obstructive stones which is what patient lymphoproliferation.. On that exam it was also consistent with muscle strain. Patient was mildly tachycardic on arrival and on my exam, on his discussing risk with the patient he relates that he has been having poor p.o. fluid intake because of his high work hours recently. Patient felt improved after fluids, spoke to patient at length about the importance of following up with his primary doctor which he agreed to do. Ordered a urine GC sample prior to patient's discharge as he left before it was collected. Given that the patient has no GC risk factors and will be following up with his primary doctor, no need to emergently recall patient back to ED for that. Patient given extensive return to ED precautions which he demonstrated understanding of - Vital Signs Vital signs: Temp Pulse Resp BP Pulse Ox 97.9 F 85 16 125/80 99 08/21/19 04:26 08/21/19 04:26 08/21/19 04:26 08/21/19 04:26 08/21/19 04:26 - Laboratory Result Diagrams: 08/20/19 22:50 08/20/19 22:50 Laboratory results interpreted by me: 08/20/19 08/20/19 08/20/19 22:50 22:50 23:45 RBC 3.85 L Hgb 13.4 L Hct 37.8 L MCV 98 H MCH 34.7 H Plt Count 132 L Sodium 135.9 L BUN 23 H Calcium 8.3 L AST 15 L Total Protein 5.9 L Urine Urobilinogen 2.0 H Discharge - Discharge Clinical Impression: Back pain Qualifiers: Back pain location: low back pain Chronicity: acute Back pain laterality: left Sciatica presence: without sciatica Qualified Code(s): M54.5 - Low back pain Condition: Stable Disposition: HOME, SELF-CARE Additional Instructions: Low Back Pain Three out of every four people will have an episode of disabling back pain during their lifetime. Most commonly the pain is due to straining of the muscles and ligaments in the low back. Usual treatment includes: (1) Rest on a firm surface. Avoid lying on your stomach. (2) Ice pack the painful area. After a few days, gentle heat may be used intermittently to relax the area, or ice packs can be continued. (3) Medication may be needed -- muscle relaxers and antiinflammatory medicines are commonly used. (4) As the back improves, exercises are prescribed to strengthen the back and abdominal muscles. Your doctor will advise you on the proper care for your back at each stage in your recovery. You may be better in a few days -- or healing may take several weeks. If new symptoms of a "herniated disc" (radiation of pain, numbness, or tingling down the back of the leg or weakness in the leg) occur, you should be re-examined. Further testing may be necessary. Follow-up with your primary doctor and orthopedic surgeon within 1 week. If you should have any worsening pain, trouble walking, weakness or numbness, measured fever of 100.4 or higher, inability to urinate, or any other worsening or alarming symptoms return to the emergency department immediately. Prescriptions: Lidocaine [Lidoderm 5% (700 mg) Transdermal Patch] 1 patch TP DAILY #10 ad h..patch Referrals: DEDE TIDWELL PA-C [Primary Care Provider] - Follow up as needed MAKAYLA BOSCH JR, DO [ACTIVE PROVISIONAL STAFF] - Follow up as needed
[2019-08-21] MEDS ORDERED: LIDOCAINE 5% (700 MG) TRANSDERMAL ADH..PATCH TP ONE (04:10)
[2019-08-21 04:28] VITALS: BP 125/80
== END 2019-08-21 04:26 | disposition home or self-care (01) ==
LOC: ER 22:32
DX: M54.5 Low back pain (principal); R10.9 Unspecified abdominal pain; R30.0 Dysuria; R50.9 Fever, unspecified; R63.0 Anorexia; R00.0 Tachycardia, unspecified; Z88.8 Allergy status to other drugs, medicaments and biological substances; I10 Essential (primary) hypertension
CPT/HCPCS: 99284; 96360; 96361; 36415; 83690; 85025; 80053; 81001; 80307; 74022; J7030; J7120

== ENCOUNTER 2019-11-10 18:02 | Emergency (ER) | payer BC ==
[2019-11-10] MEDS ORDERED: ONDANSETRON 4 MG TAB.RAPDIS PO ONE (19:37)
[2019-11-10] MEDS ORDERED: KETOROLAC TROMETHAMINE 60 MG/2 ML SDV IM ONE (19:37)
--- NOTE | 2019-11-10 19:39 | ER Document Report ---
ED Medical Screen (RME) - General Chief Complaint: Flank Pain Stated Complaint: FLANK PAIN Time Seen by Provider: 11/10/19 19:32 Primary Care Provider: DEDE TIDWELL PA-C [Primary Care Provider] - Follow up as needed Mode of Arrival: Ambulatory Information source: Patient Notes: HPI; 34-year-old male presents to the emergency room complaining of left flank pain that started 2 days ago. Describes it as a sharp stabbing constant pain. Complains of nausea but no vomiting. Decreased urinary output with dysuria. History of kidney stones. Denies fevers. PE: Alert and oriented x3. Lungs: Clear to auscultation without rales, rhonchi, wheezes. Heart: Regular rate and rhythm without murmurs, rubs, gallops. Positive for left CVA tenderness. I have greeted and performed a rapid initial assessment of this patient. A comprehensive ED assessment and evaluation of the patient, analysis of test results and completion of the medical decision making process will be conducted by additional ED providers. I have specifically instructed the patient or family members with the patient to immediately return to any nursing staff should anything change in the patient's condition or with their chief complaint. TRAVEL OUTSIDE OF THE [place] IN LAST 30 DAYS: No - Related Data Allergies/Adverse Reactions: acetaminophen [From [place]] Allergy (Verified 08/12/19 12:38) hydrocodone [From [place]] Allergy (Verified 08/12/19 12:38) tramadol Allergy (Verified 08/15/19 13:48) Past Medical History - Social History Frequency of alcohol use: None Drug Abuse: None - Past Medical History Cardiac Medical History: Reports: Hx Hypertension Renal/ Medical History: Reports: Hx Kidney Stones. Denies: Hx Peritoneal Dialysis Musculoskeltal Medical History: Reports Hx Musculoskeletal Trauma Past Surgical History: Reports: Hx Appendectomy - Immunizations Hx Diphtheria, Pertussis, Tetanus Vaccination: No Physical Exam - Vital signs Vitals: Temp Pulse Resp BP Pulse Ox 98.5 F 100 16 104/77 100 11/10/19 18:14 11/10/19 18:14 11/10/19 18:14 11/10/19 18:14 11/10/19 18:14 Course - Vital Signs Vital signs: Temp Pulse Resp BP Pulse Ox 98.5 F 100 16 104/77 100 11/10/19 18:14 11/10/19 18:14 11/10/19 18:14 11/10/19 18:14 11/10/19 18:14 Doctor's Discharge - Discharge Referrals: DEDE TIDWELL PA-C [Primary Care Provider] - Follow up as needed
[2019-11-10 20:17] LABS: ABSOLUTE EOSINOPHILS # (AUTO) 0.1 10^3/uL (0.0-0.6); ABSOLUTE LYMPHOCYTES (AUTO) 2.5 10^3/uL (0.5-4.7); ABSOLUTE MONOCYTES (AUTO) 0.9 10^3/uL (0.1-1.4); ABSOLUTE NEUT (AUTO) 7.2 10^3/uL (1.7-8.2); BASOPHILS % (AUTO) 0.2 % (0-2); EOSINOPHILS % (AUTO) 0.6 % (0-6); HEMATOCRIT 42.3 % (37.9-51.0); HEMOGLOBIN 14.9 g/dL (13.5-17.0); LYMPHOCYTES % (AUTO) 23.2 % (13-45); MEAN CORPUSCULAR HEMOGLOBIN 34.4 pg (27.0-33.4); MEAN CORPUSCULAR HGB CONC 35.2 g/dL (32.0-36.0); MEAN CORPUSCULAR VOLUME 98 fl (80-97); MONOCYTES % (AUTO) 8.4 % (3-13); PLATELET COUNT 335 10^3/uL (150-450); RED BLOOD COUNT 4.32 10^6/uL (4.35-5.55); RED CELL DISTRIBUTION WIDTH 12.8 % (11.5-14.0); SEGMENTED NEUTROPHILS % (AUTO) 67.6 % (42-78); TOTAL CELLS COUNTED % (AUTO) 100 %; WHITE BLOOD COUNT 10.6 10^3/uL (4.0-10.5)
[2019-11-10 20:20] LABS: APPEARANCE,URINE CLEAR; BILIRUBIN,URINE NEGATIVE (NEGATIVE); COLOR,URINE YELLOW; GLUCOSE, URINE NEGATIVE (NEGATIVE); KETONES,URINE NEGATIVE (NEGATIVE); LEUKOCYTE ESTERASE,URINE SMALL (NEGATIVE); NITRITE,URINE NEGATIVE (NEGATIVE); PROTEIN,URINE NEGATIVE (NEGATIVE); URINE SPECIFIC GRAVITY 1.024
--- NOTE | 2019-11-10 20:22 | RADIOLOGY REPORT (SQ) ---
EXAM DESCRIPTION: CT scan of the abdomen and pelvis without contrast. CLINICAL HISTORY: 34 years Male; flank pain history of kidney stones. Previous appendectomy. TECHNIQUE: CT of the abdomen and pelvis without intravenous contrast.. Oral contrastWas not used. All CT scans at this facility use dose modulation, iterative reconstruction, and/or weight based dosing when appropriate to reduce radiation dose to as low as reasonably achievable. This exam was performed according to our department optimization program which includes automated exposure control, adjustment of the mA and/or kv according to patient size and/or use of iterative reconstruction technique. COMPARISON: None. FINDINGS: Lower chest:The lung bases are clear. The visualized portion of heart and great vessels are normal. Abdomen: Liver and biliary tree: The unenhanced liver and gallbladder are unremarkable. Pancreas: Normal Spleen:Within normal limits Kidneys: Multiple bilateral kidney stones are identified. On the right at least seven stones are noted. The largest in the mid kidney measures 4 mm. The left kidney contains a single stone in the midportion which measures 3 mm. No hydronephrosis or hydroureter. No definitive ureteral stones. Adrenal glands:Within normal limits Vascular structures:Within normal limits Retroperitoneum: No mass or lymphadenopathy Abdominal wall: normal GI: Scattered stool is present in the colon. The small bowel is decompressed. No obstruction. No focal bowel wall thickening. Appendix: Surgically absent General: No free air. No free fluid Pelvis: Lymph nodes: No mass or lymphadenopathy Bladder: The bladder is mostly empty. Pelvis: No pelvic mass or adenopathy. Bones: No acute bone findings. IMPRESSION: 1. Multiple bilateral nonobstructing kidney stones. No definitive ureteral stones. 2. No acute process in the abdomen or pelvis.
[2019-11-10 20:34] LABS: ALBUMIN 4.6 g/dL (3.5-5.0); ALKALINE PHOSPHATASE 113 U/L (38-126); ANION GAP 12 (5-19); ASPARTATE AMINO TRANSFERASE 26 U/L (17-59); BILIRUBIN,DIRECT 0.3 mg/dL (0.0-0.4); BILIRUBIN,TOTAL 0.8 mg/dL (0.2-1.3); BLOOD UREA NITROGEN 20 mg/dL (7-20); CALCIUM 9.4 mg/dL (8.4-10.2); CARBON DIOXIDE 27 mmol/L (22-30); CHLORIDE 104 mmol/L (98-107); GLUCOSE 107 mg/dL (75-110); POTASSIUM 4.3 mmol/L (3.6-5.0); TOTAL PROTEIN 7.7 g/dL (6.3-8.2)
[2019-11-11] MEDS ORDERED: KETOROLAC TROMETHAMINE 60 MG/2 ML SDV IM ONE (01:00)
[2019-11-11] MEDS ORDERED: ONDANSETRON 4 MG TAB.RAPDIS PO ONE (01:00)
--- NOTE | 2019-11-11 01:05 | ER Document Report ---
ED GI/ - General Chief Complaint: Flank Pain Stated Complaint: FLANK PAIN Time Seen by Provider: 11/10/19 19:32 Primary Care Provider: DEDE TIDWELL PA-C [Primary Care Provider] - Follow up tomorrow Mode of Arrival: Ambulatory Notes: Patient is a 34-year-old male who presents the emergency department with a chief complaint of left flank pain that started 2 days ago. Patient states that it is a sharp, stabbing pain. Describes his pain as "razor blades going down his back." Patient states that he does go to urology, and is currently on Flomax and Zofran. Patient states that he does not have pain medication anymore and that is why he is here in the emergency department. Patient states that he has history of kidney stones. Denies any nausea, vomiting, or diarrhea. Denies any dysuria. TRAVEL OUTSIDE OF THE [place] IN LAST 30 DAYS: No - Related Data Allergies/Adverse Reactions: acetaminophen [From [place]] Allergy (Verified 08/12/19 12:38) codeine Allergy (Verified 11/11/19 00:57) hydrocodone [From [place]] Allergy (Verified 08/12/19 12:38) tramadol Allergy (Verified 08/15/19 13:48) Past Medical History - General Information source: Patient - Social History Smoking Status: Never Smoker Frequency of alcohol use: None Drug Abuse: None Family History: Reviewed & Not Pertinent, CAD, DM, Hypertension Patient has homicidal ideation: No - Past Medical History Cardiac Medical History: Reports: Hx Hypertension Renal/ Medical History: Reports: Hx Kidney Stones. Denies: Hx Peritoneal Dialysis Musculoskeletal Medical History: Reports Hx Musculoskeletal Trauma Past Surgical History: Reports: Hx Appendectomy - Immunizations Hx Diphtheria, Pertussis, Tetanus Vaccination: No Review of Systems - Review of Systems Notes: REVIEW OF SYSTEMS: CONSTITUTIONAL : Denies recent illness. Denies recent unintentional weight loss. Denies fever, chills, or sweats. EENT: Denies eye, ear, throat, or mouth pain, discharge, or symptoms. Denies nasal or sinus congestion. CARDIOVASCULAR: Denies chest pain. RESPIRATORY: Denies shortness of breath, cough, congestion, difficulty robert thing, or wheezing. GASTROINTESTINAL: Denies nausea, vomiting, and diarrhea. Denies abdominal pain. Denies constipation. GENITOURINARY: Denies difficulty urinating, burning, blood in urine, urgency or frequency. MUSCULOSKELETAL: See HPI. Denies joint pain or swelling. SKIN: Denies rash, itchiness, or lesions HEMATOLOGIC : Denies easy bruising or bleeding. LYMPHATIC: Denies swollen, painful, enlarged glands. NEUROLOGICAL: Denies no numbness or tingling denies weakness. Denies headache. Denies altered mental status. Denies alteration in speech. PSYCHIATRIC: Denies stress, anxiety, alteration in sleep patterns, or depression. All other systems reviewed and negative. Physical Exam - Vital signs Vitals: Temp Pulse Resp BP Pulse Ox 98.5 F 100 16 104/77 100 11/10/19 18:14 11/10/19 18:14 11/10/19 18:14 11/10/19 18:14 11/10/19 18:14 - Notes Notes: PHYSICAL EXAMINATION: GENERAL: Appears well, healthy, well-nourished, no acute distress. HEAD: Normocephalic, atraumatic. EYES: PERRL, conjunctiva normal, all extraocular movements intact, sclera nonicteric ENT: Moist mucous membranes. NECK: Supple, no noticeable swelling, redness, rash. Normal range of motion. LUNGS: Equal breath sounds bilaterally and clear to auscultation. No wheezes rales or rhonchi. CARDIOVASCULAR: S1-S2, regular rate, regular rhythm. Radial pulses 2+, normal. ABDOMEN: Normoactive bowel sounds. Soft, nontender, no guarding, no rebound tenderness, and no masses palpated. EXTREMITIES: Normal strength and range of motion, no pitting or edema. No cyano sis. NEUROLOGICAL: Moves all extremities upon command. Strength 5/5 in all extremities. PSYCH: Normal mood, normal affect. SKIN: Warm, dry. No rash, lesions, ulcerations noted. Normal skin turgor. BACK: Left CVA tenderness. Course - Re-evaluation Re-evalutation: 11/11/19 01:03 CT of the abdomen and pelvis show kidney stones inside the kidney, but not in the ureter. There is no hydronephrosis or hydroureter ureter. His kidney stones are stable. Hematology shows a slight leukocytosis of 10,600 with no shift. Chemistries are unremarkable. Kidney function is normal. Urinalysis shows a small amount of leukocytes in his urine. No blood noted in his urine. We will send his urine for culture. According to the [place] drug recording system, the patient received a 7-day supply of [place] on 11/05/2019. Patient should still have 2 more days of this medication. I will not prescribe the patient more of this medication. We will give him Toradol. I explained to the patient that he needs to go to pain management, as the emergency department is not chronic pain management. He states that he has a referral over there. I told him he needs to go there and he will not receive narcotic pain medication from the emergency department. Advised him to follow-up tomorrow with his PCM. Patient has been prescribed narcotics multiple times in the months of September and October. This is very concerning, as some of these medications are hydromorphone 2 mg tablets. I am concerned for this patient and confronted him on his frequent narcotic use. Follow-up precautions were given. Verbal discharge instructions were given to the patient. They verbalized understanding. They are stable for discharge. - Vital Signs Vital signs: Temp Pulse Resp BP Pulse Ox 98.5 F 90 18 136/89 H 99 11/11/19 01:14 11/11/19 01:14 11/11/19 01:14 11/11/19 01:14 11/11/19 01:14 - Laboratory Result Diagrams: 11/10/19 20:00 11/10/19 20:00 Laboratory results interpreted by me: 11/10/19 11/10/19 20:00 20:00 WBC 10.6 H RBC 4.32 L MCV 98 H MCH 34.4 H Urine Urobilinogen 2.0 H Ur Leukocyte Esterase SMALL H Discharge - Discharge Clinical Impression: Flank pain Condition: Stable Disposition: HOME, SELF-CARE Additional Instructions: You were seen today in the emergency department for flank pain. Your kidney stones are stable are in the same spot. You are being prescribed Toradol for your pain. Do not take ibuprofen. Please continue with your follow-up visit with your urologist. Please also follow-up with pain management. Prescriptions: Ketorolac Tromethamine [Toradol 10 mg Tablet] 10 mg PO Q6HP PRN #20 tablet PRN Reason: Referrals: DEDE TIDWELL PA-C [Primary Care Provider] - Follow up tomorrow
[2019-11-11 01:15] VITALS: BP 136/89
== END 2019-11-11 01:18 | disposition home or self-care (01) ==
LOC: ER 18:02
DX: N20.0 Calculus of kidney (principal); R10.9 Unspecified abdominal pain; I10 Essential (primary) hypertension; Z88.6 Allergy status to analgesic agent; Z87.442 Personal history of urinary calculi
CPT/HCPCS: 99285; 96372; 36415; 87086; 85025; 80053; 81001; 74176; J1885; S0119

== ENCOUNTER 2019-12-08 18:16 | Emergency (ER) | payer BC ==
[2019-12-08] MEDS ORDERED: NORMAL SALINE 1000 ML 1,000 ML IV ONE (19:12)
[2019-12-08] MEDS ORDERED: IBUPROFEN 800 MG TABLET PO ONE (19:13)
[2019-12-08] MEDS ORDERED: ONDANSETRON HCL INJ/PF 4 MG/2 ML SDV IV ONE (19:19)
--- NOTE | 2019-12-08 19:26 | ER Document Report ---
ED Medical Screen (RME) - General Chief Complaint: Flank Pain Stated Complaint: FLANK PAIN Time Seen by Provider: 12/08/19 19:05 Primary Care Provider: DEDE TIDWELL PA-C [Primary Care Provider] - Follow up as needed TRAVEL OUTSIDE OF THE [place] IN LAST 30 DAYS: No - HPI Notes: 12/08/19 19:19 34-year-old male presents emergency room with complaints of flank pain for the last 2 weeks left greater than right. Reports pain started to become episodic last night, lasted for couple of hours, at that time the pain was 5 out of 5. Patient has been taking [id number] ibuprofen and Tylenol to manage his pain. Patient had a nephrolithotripsy done a month ago at [facility], he is that he called there and they said they were able to see him today. Denies any fevers chills, nausea vomiting diarrhea. Pain right now is 2 out of 5. Unable to give narcotics intravenously in the triage area and patient states he is allergic to acetaminophen and the [place], newly allergic to tramadol because it causes a rash. When I told him we could add Benadryl to the tramadol he refused. The patient was prescribed ibuprofen 800 mg p.o. I have greeted and performed a rapid initial assessment of this patient. A comprehensive ED assessment and evaluation of the patient, analysis of test results and completion of the medical decision making process will be conducted by additional ED providers. PHYSICAL EXAMINATION: GENERAL: Well-appearing, well-nourished and in no acute distress. CV: s1, s2 regular LUNGS: No respiratory distress Musculoskeletal: Normal range of motion abd: no abd tenderness. L>R cva tenderness. NEUROLOGICAL: Normal speech, normal gait. SKIN: Warm, Dry, normal turgor, no rashes or lesions noted. - Related Data Allergies/Adverse Reactions: acetaminophen [From [place]] Allergy (Verified 08/12/19 12:38) codeine Allergy (Verified 11/11/19 00:57) hydrocodone [From [place]] Allergy (Verified 08/12/19 12:38) tramadol Allergy (Verified 08/15/19 13:48) Past Medical History - Past Medical History Cardiac Medical History: Reports: Hx Hypertension Renal/ Medical History: Reports: Hx Kidney Stones. Denies: Hx Peritoneal Dialysis Musculoskeltal Medical History: Reports Hx Musculoskeletal Trauma Past Surgical History: Reports: Hx Appendectomy - Immunizations Hx Diphtheria, Pertussis, Tetanus Vaccination: No Physical Exam - Vital signs Vitals: Temp Pulse Resp BP Pulse Ox 98.2 F 81 20 133/78 H 100 12/08/19 18:41 12/08/19 18:41 12/08/19 18:41 12/08/19 18:41 12/08/19 18:41 Course - Vital Signs Vital signs: Temp Pulse Resp BP Pulse Ox 98.2 F 81 20 133/78 H 100 12/08/19 18:41 12/08/19 18:41 12/08/19 18:41 12/08/19 18:41 12/08/19 18:41 Doctor's Discharge - Discharge Referrals: DEDE TIDWELL PA-C [Primary Care Provider] - Follow up as needed
[2019-12-08 19:39] LABS: ABSOLUTE EOSINOPHILS # (AUTO) 0.1 10^3/uL (0.0-0.6); ABSOLUTE LYMPHOCYTES (AUTO) 1.7 10^3/uL (0.5-4.7); ABSOLUTE MONOCYTES (AUTO) 0.5 10^3/uL (0.1-1.4); ABSOLUTE NEUT (AUTO) 2.4 10^3/uL (1.7-8.2); BASOPHILS % (AUTO) 0.3 % (0-2); EOSINOPHILS % (AUTO) 2.7 % (0-6); HEMATOCRIT 42.4 % (37.9-51.0); HEMOGLOBIN 14.9 g/dL (13.5-17.0); LYMPHOCYTES % (AUTO) 34.9 % (13-45); MEAN CORPUSCULAR HEMOGLOBIN 34.7 pg (27.0-33.4); MEAN CORPUSCULAR HGB CONC 35.1 g/dL (32.0-36.0); MEAN CORPUSCULAR VOLUME 99 fl (80-97); PLATELET COUNT 115 10^3/uL (150-450); RED CELL DISTRIBUTION WIDTH 13.7 % (11.5-14.0); SEGMENTED NEUTROPHILS % (AUTO) 51.1 % (42-78); TOTAL CELLS COUNTED % (AUTO) 100 %; WHITE BLOOD COUNT 4.7 10^3/uL (4.0-10.5)
[2019-12-08 19:46] LABS: APPEARANCE,URINE CLEAR; BILIRUBIN,URINE NEGATIVE (NEGATIVE); CALCIUM OXALATE CRYSTALS,URINE MANY /HPF; COLOR,URINE YELLOW; GLUCOSE, URINE NEGATIVE (NEGATIVE); KETONES,URINE NEGATIVE (NEGATIVE); LEUKOCYTE ESTERASE,URINE NEGATIVE (NEGATIVE); NITRITE,URINE NEGATIVE (NEGATIVE); PROTEIN,URINE NEGATIVE (NEGATIVE); URINE SPECIFIC GRAVITY 1.029
[2019-12-08 19:59] LABS: ALBUMIN 4.5 g/dL (3.5-5.0); ALKALINE PHOSPHATASE 100 U/L (38-126); ANION GAP 10 (5-19); ASPARTATE AMINO TRANSFERASE 26 U/L (17-59); BILIRUBIN,DIRECT 0.2 mg/dL (0.0-0.4); BILIRUBIN,TOTAL 0.8 mg/dL (0.2-1.3); BLOOD UREA NITROGEN 17 mg/dL (7-20); CALCIUM 9.4 mg/dL (8.4-10.2); CARBON DIOXIDE 26 mmol/L (22-30); CHLORIDE 106 mmol/L (98-107); GLUCOSE 104 mg/dL (75-110); POTASSIUM 4.3 mmol/L (3.6-5.0)
--- NOTE | 2019-12-08 20:15 | RADIOLOGY REPORT (SQ) ---
EXAM DESCRIPTION: US RETROPERITONEUM LIMITED COMPLETED DATE/TME: 12/08/2019 19:10 CLINICAL HISTORY: 34 years Male L>R flank pain COMPARISON: None. TECHNIQUE: Transabdominal grayscale imaging performed to evaluate the kidneys and urinary bladder. FINDINGS: Right kidney measures 9.4 x 3.7 x 4.7 cm. No hydronephrosis or mass. Numerous echogenic foci consistent with nonobstructing stones. Left kidney measures 9.2 x 4 x 4.5 cm. Numerous calculi also present on the left. No hydronephrosis. Decompressed urinary bladder. Prostate is visualized. IMPRESSION: Bilateral nonobstructing renal stones.
[2019-12-08] MEDS ORDERED: OXYCODONE-ACETAMINOPHEN 5-325 MG TABLET PO ONE (22:07)
--- NOTE | 2019-12-08 22:28 | ER Document Report ---
ED GI/ - General Chief Complaint: Flank Pain Stated Complaint: FLANK PAIN Time Seen by Provider: 12/08/19 19:05 Primary Care Provider: DEDE TIDWELL PA-C [Primary Care Provider] - Follow up as needed Notes: CHIEF COMPLAINT: Intermittent left flank pain for weeks HPI: 34-year-old male with history of kidney stones who follows with [facility] with left flank pain intermittent for weeks worse tonight. Has not had vomiting or fever. Patient is concerned it is a kidney stone. He did not contact his urologist prior to coming to the emergency department tonight. Denies trauma. Denies hematuria. Denies other complaints including penile or testicular pain ROS: See HPI - all other systems were reviewed and are otherwise negative Constitutional: no fever Eyes: no drainage, no blurred vision ENT: no runny nose, no sore throat Cardiovascular: no chest pain Resp: no SOB, no cough GI: no vomiting, no diarrhea, no abdominal pain : no dysuria Integumentary: no rash Allergy: no hives Musculoskeletal: no extremity pain or swelling positive left back pain Neurological: no numbness/tingling, no weakness MEDICATIONS: I agree with the patient medications as charted by the RN. ALLERGIES: I agree with the allergies as charted by the RN. PAST MEDICAL HISTORY/PAST SURGICAL HISTORY: Reviewed and agree as charted by RN. SOCIAL HISTORY: Reviewed and agree as charted by RN. FAMILY HISTORY: No significant familial comorbid conditions directly related to patient complaint EXAM: Reviewed vital signs as charted by RN. CONSTITUTIONAL: Alert and oriented and responds appropriately to questions. Well -appearing; well-nourished HEAD: Normocephalic; atraumatic EYES: PERRL; Conjunctivae clear, sclerae non-icteric ENT: normal nose; no rhinorrhea; moist mucous membranes; pharynx without lesions noted, no uvula edema or deviation, no tonsillar hypertrophy, phonation normal NECK: Supple without meningismus; non-tender; no cervical lymphadenopathy, no masses CARD: RRR; no murmurs, no clicks, no rubs, no gallops; symmetric distal pulses RESP: Normal chest excursion without splinting or tachypnea; breath sounds clear and equal bilaterally; no wheezes, no rhonchi, no rales, pulse oximetry ABD/GI: Normal bowel sounds; non-distended; soft, non-tender, no rebound, no guarding; no palpable organomegaly or masses. BACK: The back appears normal and is non-tender to palpation, there is mild left CVA tenderness EXT: Normal ROM in all joints; non-tender to palpation; no cyanosis, no effusions, no edema SKIN: Normal color for age and race; warm; dry; good turgor; no acute lesions noted NEURO: Moves all extremities equally; Motor and sensory function intact PSYCH: The patient's mood and manner are appropriate. Grooming and personal hygiene are appropriate. MDM: 34-year-old male with left back pain intermittent for weeks with a kidney stone history. Initial work-up via the triage process shows normal CBC normal CMP normal urinalysis. Bilateral renal calculi are noted on the ultrasound that was performed. He reports that he has had to have kidney stones surgically removed previously will obtain Noncon CT to determine if he is actually passing a stone at this time TRAVEL OUTSIDE OF THE [place] IN LAST 30 DAYS: No - Related Data Allergies/Adverse Reactions: acetaminophen [From [place]] Allergy (Verified 08/12/19 12:38) codeine Allergy (Verified 11/11/19 00:57) hydrocodone [From [place]] Allergy (Verified 08/12/19 12:38) tramadol Allergy (Verified 08/15/19 13:48) Past Medical History - Social History Smoking Status: Unknown if Ever Smoked Family History: Reviewed & Not Pertinent, CAD, DM, Hypertension - Past Medical History Cardiac Medical History: Reports: Hx Hypertension Renal/ Medical History: Reports: Hx Kidney Stones. Denies: Hx Peritoneal D ialysis Musculoskeletal Medical History: Reports Hx Musculoskeletal Trauma Past Surgical History: Reports: Hx Appendectomy - Immunizations Hx Diphtheria, Pertussis, Tetanus Vaccination: No Physical Exam - Vital signs Vitals: Temp Pulse Resp BP Pulse Ox 98.2 F 81 20 133/78 H 100 12/08/19 18:41 12/08/19 18:41 12/08/19 18:41 12/08/19 18:41 12/08/19 18:41 Course - Re-evaluation Re-evalutation: 12/08/19 23:15 CT imaging shows constipation no obstructing stones or recent passage of stones no dilatation of the ureters, no hydronephrosis. Unlikely this is a kidney stone. Will place patient on mag citrate, Bentyl, follow-up PCP - Vital Signs Vital signs: Temp Pulse Resp BP Pulse Ox 98.2 F 81 20 133/78 H 100 12/08/19 18:41 12/08/19 18:41 12/08/19 18:41 12/08/19 18:41 12/08/19 18:41 - Laboratory Result Diagrams: 12/08/19 19:20 12/08/19 19:20 Laboratory results interpreted by me: 12/08/19 12/08/19 10:35 19:20 RBC 4.30 L MCV 99 H MCH 34.7 H Plt Count 115 L Urine Urobilinogen 4.0 H Discharge - Discharge Clinical Impression: Left flank pain Constipation Qualifiers: Constipation type: other constipation type Qualified Code(s): K59.09 - Other constipation Condition: Stable Disposition: HOME, SELF-CARE Additional Instructions: CT imaging today did not suggest active passage of a kidney stone. Did suggest moderate constipation take the mag citrate as indicated. Continue on MiraLAX and Bentyl to help with abdominal spasm and constipation follow-up with your primary care provider for reevaluation Prescriptions: Dicyclomine HCl [Bentyl 20 mg Tablet] 20 mg PO Q6H PRN #20 tablet PRN Reason: Polyethylene Glycol 3350 [Miralax] 1 cap PO DAILY #527 powder Referrals: DEDE TIDWELL PA-C [Primary Care Provider] - Follow up as needed
--- NOTE | 2019-12-08 22:54 | RADIOLOGY REPORT (SQ) ---
EXAM DESCRIPTION: CT ABDOMEN PELVIS WITHOUT IV CONTRAST COMPLETED DATE/TME: 12/08/2019 22:08 CLINICAL HISTORY: 34 years, Male, left flank pain kidney stone hx COMPARISON: 11/10/2019 CT TECHNIQUE: 363 Images stored on PACS. All CT scanners at this facility use dose modulation, iterative reconstruction, and/or weight based dosing when appropriate to reduce radiation dose to as low as reasonably achievable (ALARA). [facility]: Dose Right [facility]: CareDose [facility]: Dose Right [facility]: Teradose 4D [facility]: [employer] LIMITATIONS: None. FINDINGS: Limited evaluation of the lung bases is unremarkable. Osseous structures are grossly intact. Limited evaluation of the liver, spleen, adrenal glands, pancreas is unremarkable. Gallbladder is present. Multiple punctate nonobstructing renal calculi bilaterally. No obstructing calculus or hydronephrosis. No gross evidence for bowel obstruction. No free air or free fluid. Postsurgical changes at the level of the appendix, which is not visualized, correlate with surgical history. Abundant stool in the colon.. IMPRESSION: Nonobstructing renal calculi bilaterally. No obstructing calculus or hydronephrosis. Abundant stool in the colon TECHNICAL DOCUMENTATION: Quality ID # [id number]: Final reports with documentation of one or more dose reduction techniques (e.g., Automated exposure control, adjustment of the mA and/or kV according to patient size, use of iterative reconstruction technique) copyright 2011 [employer] All Rights Reserved
[2019-12-08] MEDS ORDERED: MAGNESIUM CITRATE 296 ML BOTTLE PO ONE (23:16)
[2019-12-08 23:48] VITALS: BP 122/79
== END 2019-12-08 23:54 | disposition home or self-care (01) ==
LOC: ER 18:16
DX: R10.9 Unspecified abdominal pain (principal); K59.09 Other constipation; I10 Essential (primary) hypertension; Z87.442 Personal history of urinary calculi; Z88.6 Allergy status to analgesic agent
CPT/HCPCS: 99285; 36415; 85025; 80053; 81001; 76775; 74176; J3490; J7030